=== PATIENT | female | born 1945 | race Caucasian/White ===

== ENCOUNTER 2018-03-07 22:44 | Observation (INO) ==
--- NOTE | 2018-03-07 23:12 | Emergency Department Note ---
Disposition Clinical Impression: Chronic anemia, Hyponatremia Chest pain Qualifiers: Chest pain type: unspecified Qualified Code(s): R07.9 - Chest pain, unspecified CKD (chronic kidney disease) Qualifiers: Chronic kidney disease stage: unspecified stage Qualified Code(s): N18.9 - Chronic kidney disease, unspecified Disposition: Admitted As Inpatient Condition: Fair Time of Disposition: 07:09 General Adult HPI - General Chief complaint: ED Chest Pain Stated complaint: chest pain Time Seen by Provider: 03/07/18 22:52 Source: EMS Mode of arrival: ambulatory Limitations: no limitations Nursing Notes Reviewed: Yes Vital Signs Reviewed: Yes - History of Present Illness HPI Narrative: Patient is a 72-year-old female with a past medical history of CAD with 1 stent placed 2 years ago, HLD, HTN, renal disease and cholecystectomy presenting to the emergency department for evaluation of chest pain that started approximately 6 hours ago. The patient states that the chest pain was gradual in onset and describes as a pressure-like pain that is substernal. 5/10. With radiation into her neck that she describes as like an aching pain. Denies any nausea, dyspnea, exertional dyspnea or pain. Received full dose of aspirin in the squad. States that this pain is not as intense as when she had a stent placed a few years ago. Patient states she is on a water pill which she takes daily. States that over the past 5 days she has noticed lower extremity swelling bilaterally as been seen by her family doctor and had an x-ray done to evaluate for fluid on her lungs which was negative. The patient states she is also on antibiotics for a wound of her right lower extremity which was caused initially by a injury from a dog running into her. States the wound is old and has been healing however this week she noticed some redness and warmth around the room and wound along with swelling of the leg. Pain Scale: 4 - Related Data Home Medications Medication Instructions Recorded Confirmed Clopidogrel [Plavix] 75 mg PO DAILY 03/22/15 03/08/18 Cyclobenzaprine [Flexeril] 10 mg PO TID 03/22/15 03/08/18 Lansoprazole [Prevacid] 30 mg PO DAILY 03/22/15 03/08/18 Zolpidem [Ambien] 10 mg PO HS PRN 03/22/15 03/08/18 Atorvastatin [Lipitor] 40 mg PO HS 03/23/15 03/08/18 Hydrocodone/Acetaminophen [[place] 1 tab PO Q6H PRN 03/23/15 03/08/18 10-325 Tablet] Lisinopril [Zestril] 10 mg PO DAILY 03/23/15 03/08/18 Metoprolol [Lopressor] 25 mg PO DAILY 03/23/15 03/08/18 Nitroglycerin 0.4 mg SL PRN PRN 03/23/15 03/08/18 Isosorbide MONOnitrate (24 HR) 30 mg PO DAILY 06/14/15 03/08/18 [Imdur] Aspirin [Lo-Dose Aspirin EC] 81 mg PO DAILY 09/30/16 03/08/18 Calcium Carbonate/Vitamin D3 2 each PO DAILY 09/30/16 03/08/18 [Calcium 600 + Vit D Tablet] Diclofenac Sodium [Voltaren] 1 applic TP QID 09/30/16 03/08/18 Fish Oil/Borage/Flax/Om3,6,9#1 2 tab PO DAILY 09/30/16 08/21/17 [[place] 3-6-9 1,200 mg Softgel] Multivit-Min/Iron/Folic/Lutein 2 each PO DAILY 09/30/16 03/08/18 [Centrum Silver Women Tablet] Vitamin E Acetate [Vitamin E] 400 unit PO DAILY 09/30/16 03/08/18 Ascorbic Acid [Vitamin C] 1,000 mg PO DAILY 05/29/17 03/08/18 Polyethylene Glycol 3350 [MiraLAX] 17 gm PO DAILY 08/21/17 08/21/17 Allergies Allergy/AdvReac Type Severity Reaction Status Date / Time Oxycodone Allergy Vomiting Verified 03/07/18 22:59 Penicillins [PCN] Allergy Rash Verified 03/07/18 22:59 All systems ED: reviewed and negative except as stated. Review of Systems: As Per HPI Constitutional: Denies: fever, chills Cardiovascular: Reports: chest pain, orthopnea, edema. Denies: palpitations, dyspnea on exertion, syncope Respiratory: Denies: cough, dyspnea, wheezes, hemoptysis Gastrointestinal: Denies: abdominal pain Genitourinary: Denies: urgency, dysuria, frequency Musculoskeletal: Denies: back pain, neck pain Integumentary: Reports: rash (right lower extremity wound with surrounding erythema. ) Neurological: Denies: headache, weakness, numbness, paresthesias, confusion, abnormal gait Past Medical History - Past Medical History Attestation: Yes The following information was validated with the patient. Medical history: Reports: coronary artery disease, GERD, hyperlipidemia, hypertension, osteoporosis, renal disease Surgical history: Reports: cholecystectomy, orthopedic, other Psychiatric history: Reports: no psych history - Social History Smoking Status: Never smoker Smokeless Tobacco Status: Yes Alcohol use: Reports: none Drug use: Reports: none Physical Exam CONSTITUTIONAL: A&O X 3, in no apparent distress. Vitals within normal limits, blood pressure on the lower region. HEAD: Normocephalic; atraumatic EYES: PERRL, no scleral icterus NOSE: The nose is normal in appearance without rhinorrhea NECK: No JVD or distended neck veins RESP: Normal chest excursion with respiration; breath sounds clear and equal bilaterally; no wheezes, rhonchi, or rales CARD: Regular rhythm, without murmurs, rub or gallop ABD: Non-distended; non-tender, soft, without rigidity, rebound or guarding,no pulsatile mass CHEST: No pain with palpation SKIN: Normal for age and race; warm and dry without diaphoresis ; area of 3x3cm wound that appears old over the right anterior mulligan. Very light surrounding erythema of the right lower leg. No area of induration or fluctuance. EXTREMITIES: Pulses are 2 plus and equal times 4 extremities, no calf muscle pain. Patient has bilateral 2+ pitting edema. - General General appearance: alert, in no apparent distress Course Course Narrative: Plan at this time is for the patient to undergo evaluation for her chest pain. She received her full dose of aspirin and squad. Initial EKG shows no signs of ischemia at this time. She will also undergo evaluation for DVT rule out of her right lower extremity given that she has tenderness, pitting edema as well as erythema which could be related to the wound she has on her leg. Patient states that her chest pain has improved at this time. Still has mild pain radiating in her neck. - Reevaluation(s) Reevaluation #1: Patient's right lower extremity DVT scan was negative for PE. Patient had chronic changes on labs with her elevation of creatinine as well as her anemia. Her troponin was negative and her BNP was in the 100s. Her EKG showed no ischemic changes. I discussed the patient's case with the hospitalist on-call and he agreed to accept the patient for ACS rule out and hyponatremia. Time: 07:08 Vital Signs Temperature 98.5 F 03/07/18 22:52 Pulse Rate 78 03/07/18 22:52 Respiratory Rate 16 03/07/18 22:52 Blood Pressure 99/59 03/07/18 22:52 O2 Sat by Pulse Oximetry 95 03/07/18 22:52 Temperature 97.7 F 03/08/18 04:02 Pulse Rate 79 03/08/18 04:02 Respiratory Rate 16 03/08/18 04:02 Blood Pressure 124/67 03/08/18 04:02 O2 Sat by Pulse Oximetry 97 03/08/18 04:02 Oxygen Delivery Oxygen Delivery Room Air Medical Decision Making - Medical Records Medical records reviewed: Yes I reviewed the patient's medical records. - Lab Data Lab results reviewed: Yes I reviewed the patient's lab results. Result diagrams: 03/07/18 22:52 03/07/18 22:52 Lab Results 03/07/18 03/07/18 03/07/18 Range/Units 22:52 22:52 23:07 WBC 7.8 (4.3-11.1) K/mcL RBC 2.95 L (3.82-4.97) M/mcL Hgb 9.2 L (11.5-15.4) g/dL Hct 27.5 L (35.3-44.9) % MCV 93.2 (83.0-100.0) fL MCH 31.2 (28.0-33.3) pg MCHC 33.5 (31.6-35.5) g/dL RDW 13.4 (11.5-14.5) % Plt Count 261 (140-400) K/mcL MPV 8.6 L (9.4-12.4) fL Immature Gran % 0.8 (0-4) % Seg Neutrophils % 47.9 % Lymphocytes % 36.2 % Monocytes % 12.3 % Eosinophils % 2.3 % Basophils % 0.5 % Neutrophils # 3.7 (1.6-8.9) K/mcL Lymphocytes # 2.8 (0.6-4.6) K/mcL Monocytes # 1.0 (0.0-1.3) K/mcL Eosinophils # 0.2 (0.0-0.6) K/mcL Basophils # 0.0 (0.0-0.2) K/mcL Sodium 123 L (136-145) mEq/L Potassium 4.9 (3.5-5.1) mEq/L Chloride 87 L (98-107) mEq/L Carbon Dioxide 31 H (23-29) mEq/L BUN 19 (8-23) mg/dL Creatinine 1.21 H (0.60-1.20) mg/dL Est GFR ( Amer) 53 L (> 60) Est GFR (Non-Af Amer) 43 L (> 60) BUN/Creatinine Ratio 16 (6-26) Glucose 102 (70-105) mg/dL Calculated Osmolality 258 L (280-300) Calcium 8.5 L (8.6-10.3) mg/dL Troponin I < 0.03 (< 0.04) ng/mL B-Natriuretic Peptide 121 H (Less than 100) pg/mL - Radiology Data Radiology results reviewed: Yes I reviewed the patient's radiology results. - EKG Data EKG #1 EKG attestation: Yes I reviewed and interpreted this EKG. EKG results narrative: EKG done at 22:54 shows sinus rhythm at a rate of 75 bpm. Normal axis. Intervals within normal limits. No signs of ST elevation, ST depression or Q waves present. No signs of ischemia this is unchanged from her EKG done on 10/20. Attestation Statement - Attestation Attestation: I, Alexandr Liang, examined this patient and my medical decision-making was reviewed with the [employer]/PA/Advanced Practice Nurse/Resident Physician. I agree with the documented findings, disposition and treatment plan as described except to the extent set forth below. 72-year-old female presents emergency Department with concerns of bilateral lower extremity swelling and chest pain. Patient states the chest pain occurs with exertion, is a pressure in the center of her chest. This is been worsening over the past several days. Patient denied recent trauma. No changes in her medications. Patient has a history congestive heart failure and takes 20 mg of Lasix twice a day.
[2018-03-07 23:24] LABS: Basophils % 0.5 %; Eosinophils # 0.2 K/mcL (0.0-0.6); Eosinophils % 2.3 %; Hematocrit 27.5 % (35.3-44.9); Hemoglobin 9.2 g/dL (11.5-15.4); Immature Granulocytes % 0.8 % (0-4); Lymphocytes # 2.8 K/mcL (0.6-4.6); Lymphocytes % 36.2 %; Mean Corpuscular HGB Conc 33.5 g/dL (31.6-35.5); Mean Corpuscular Hemoglobin 31.2 pg (28.0-33.3); Mean Corpuscular Volume 93.2 fL (83.0-100.0); Mean Platelet Volume 8.6 fL (9.4-12.4); Monocytes % 12.3 %; Neutrophils # 3.7 K/mcL (1.6-8.9); Platelet Count 261 K/mcL (140-400); Red Blood Count 2.95 M/mcL (3.82-4.97); Red Cell Distribution Width 13.4 % (11.5-14.5); Segmented Neutrophils % 47.9 %
[2018-03-07 23:43] LABS: Calcium 8.5 mg/dL (8.6-10.3); Carbon Dioxide 31 mEq/L (23-29); Chloride 87 mEq/L (98-107); Glucose 102 mg/dL (70-105); Potassium 4.9 mEq/L (3.5-5.1); Sodium 123 mEq/L (136-145); Troponin I < 0.03 ng/mL (< 0.04); eGFR For Non-African Americans 43 (> 60)
[2018-03-08 01:01] LABS: BUN/Creatinine Ratio 16 (6-26); Blood Urea Nitrogen 19 mg/dL (8-23); Osmolality,Calculated 258 (280-300)
[2018-03-08 07:21] LABS: Troponin I < 0.03 ng/mL (< 0.04)
[2018-03-08] MEDS ORDERED: *HR* HYDROcodone/Acet 10/325 mg TABLET PO PRN (07:44)
[2018-03-08] MEDS ORDERED: 0.9 % Sodium Chloride 500 ML IVC ONE (07:44)
[2018-03-08] MEDS ORDERED: Naloxone 0.4 MG/ML INJ IVP PRN (07:46)
[2018-03-08] MEDS: Ascorbic Acid 500 MG TABLET PO SCH (08:26)
[2018-03-08] MEDS: Multivit/Ca/Min/Fe/FA 1 TAB TABLET PO SCH (08:26)
[2018-03-08] MEDS: Isosorbide MONOnitrate (24 HR) 30 MG TAB.ER.24H PO SCH (08:26)
[2018-03-08] MEDS: Aspirin Enteric Coated 81 MG Tablet PO SCH (08:26)
[2018-03-08 08:27] LABS: BUN/Creatinine Ratio 15 (6-26); Blood Urea Nitrogen 18 mg/dL (8-23); Calcium 8.8 mg/dL (8.6-10.3); Carbon Dioxide 30 mEq/L (23-29); Chloride 90 mEq/L (98-107); Glucose 111 mg/dL (70-105); Osmolality,Calculated 265 (280-300); Potassium 4.3 mEq/L (3.5-5.1); Sodium 126 mEq/L (136-145); eGFR For Non-African Americans 42 (> 60)
[2018-03-08] MEDS: DICLOFENAC SODIUM TP SCH ×4 (08:38→20:57)
--- NOTE | 2018-03-08 08:44 | Internal Med History&Physical ---
Date of Encounter: 03/08/18 Time of Encounter: 08:42 Internal Medicine - H&P: HPI Chief complaint: Chest pain Admitted From: Home Plans for Post Hospital Care: Home History of present illness: Ms. Locke is a 72 year old female with PMH of CAD with stent, CKD III, HLD, HTN, who presented to the ER with complains of chest pain that started approximately 6 hours prior to presentation. The patient states that the chest pain was gradual in onset and describes as a pressure-like pain that is substernal. 5/10. With radiation into her neck that she describes as like an aching pain. Denies any nausea, dyspnea, exertional dyspnea or pain. Received full dose of aspirin in the squad. States that this pain is not as intense as when she had a stent placed a few years ago. She also described "pain between my shoulders", said to be dull, non-radiating and completely unrelated to the chest pain. She denies cough, SOB, diaphoresis, n/v/diarrhea, no fever or chills. She denies any dysuria, or change in urinary habits. she has CKD III and has not noticed any changes in her urine output. She is on a diuretic which she takes religiously She reports having been scratched by her daughter's dog on her RLE and started on antibiotic by her PCP 2 days ago. She denies any purulent discharge from same Initial EKG and trop in the ER was non-ischemic. Other work up showed hyponatremia, BNP was 121, repeat trop was negative as well. Beside USS of RLE showed no DVT She is full code Past Med Surg Social Fam HX - Past Medical History Medical history: coronary artery disease, GERD, hyperlipidemia, hypertension, osteoporosis, renal disease Additional medical history: sepsis september 2014, heart stent 2013 @ [facility] Psychiatric history: no psych history - Past Surgical History Surgical History: cholecystectomy, orthopedic, other Additional surgical history: hip surgeries - Social History Smoking Status: Never smoker Smokeless Tobacco Status: Yes Alcohol use: none Drug use: none - Family History Mother Living Status: Still Living Hx Family Neurologic Disorders: Yes (alzheimers) Internal Medicine - H&P: Meds Clopidogrel [Plavix] 75 mg PO DAILY 03/22/15 [History] Cyclobenzaprine [Flexeril] 10 mg PO TID 03/22/15 [History] Lansoprazole [Prevacid] 30 mg PO DAILY 03/22/15 [History] Zolpidem [Ambien] 10 mg PO HS PRN 03/22/15 [History] Atorvastatin [Lipitor] 40 mg PO HS 03/23/15 [History] Hydrocodone/Acetaminophen [[place] 10-325 Tablet] 1 tab PO Q6H PRN 03/23/15 [ History] Lisinopril [Zestril] 10 mg PO DAILY 03/23/15 [History] Metoprolol [Lopressor] 25 mg PO DAILY 03/23/15 [History] Nitroglycerin 0.4 mg SL PRN PRN 03/23/15 [History] Isosorbide MONOnitrate (24 HR) [Imdur] 30 mg PO DAILY 06/14/15 [History] Aspirin [Lo-Dose Aspirin EC] 81 mg PO DAILY 09/30/16 [History] Calcium Carbonate/Vitamin D3 [Calcium 600 + Vit D Tablet] 2 each PO DAILY [History] Diclofenac Sodium [Voltaren] 1 applic TP QID 09/30/16 [History] Fish Oil/Borage/Flax/Om3,6,9#1 [[place] 3-6-9 1,200 mg Softgel] 2 tab PO DAILY 09/13 [History] Multivit-Min/Iron/Folic/Lutein [Centrum Silver Women Tablet] 2 each PO DAILY 09/13 [History] Vitamin E Acetate [Vitamin E] 400 unit PO DAILY 09/30/16 [History] Ascorbic Acid [Vitamin C] 1,000 mg PO DAILY 05/29/17 [History] Polyethylene Glycol 3350 [MiraLAX] 17 gm PO DAILY 08/21/17 [History] 3 Allergy/AdvReac Type Severity Reaction Status Date / Time Oxycodone Allergy Vomiting Verified 03/07/18 22:59 Penicillins [PCN] Allergy Rash Verified 03/07/18 22:59 All Systems PM: A 10-system review of systems was performed and is negative for pertinent findings except as documented above in the HPI. - Constitutional Constitutional: as per HPI - EENT Eyes: as per HPI Ears: as per HPI Nose, mouth and throat: as per HPI - Cardiovascular Cardiovascular ROS IM: as per HPI - Respiratory Respiratory: as per HPI - Gastrointestinal Gastrointestinal: as per HPI - Genitourinary Genitourinary: as per HPI - Musculoskeletal Musculoskeletal ROS IM: as per HPI - Integumentary Integumentary IM: as per HPI - Neurological Neurological ROS: as per HPI - Hematologic/Lymphatic Hematologic/Lymphatic: as per HPI - Constitutional Vitals: Temp Pulse Resp BP Pulse Ox 98.8 F 77 18 125/53 99 03/08/18 07:45 03/08/18 07:45 03/08/18 07:45 03/08/18 07:45 03/08/18 07:45 General appearance: Present: A&O X 3, no acute distress, obese Exam: see detailed exam below - Head Head exam: Present: atraumatic, normocephalic - Eye Eye exam: Present: PERRL, conjuntiva pink, sclera anicteric Pupils: Present: PERRL - Neck Neck exam general surgery: Present: supple, trachea midline. Absent: lymphadenopathy - Respiratory Respiratory exam: Present: CTAB. Absent: accessory muscle use, rales, rhonchi, wheezes - Cardiovascular Cardiovascular exam: Present: RRR, +S1, +S2. Absent: diastolic murmur, gallop, rubs, systolic murmur - GI/Abdominal GI/Abdominal exam: Present: normal bowel sounds, soft, no peritoneal signs. Absent: distended, tenderness - Extremities Exam Extremities exam: Present: pedal edema, warm, radial pulses palpable and symmetrical. Absent: calf tenderness, cyanotic Additional comments: RLE with lateral healed wounds but surrounding warmth, redness and tenderness, bilateral piting pedal edema Pulses present - Neurological Exam Neurological exam: Present: alert, CN II-XII intact, oriented X3, no focal deficits. Absent: pronater drift, facial droop, speech deficit - Skin Skin exam: Present: dry, intact Internal Med - H&P Results - Labs CBC & Chem 7: 03/07/18 22:52 03/08/18 05:50 Labs: BMP 03/08/18 05:50 Sodium 126 L Potassium 4.3 Chloride 90 L Carbon Dioxide 30 H BUN 18 Creatinine 1.24 H Glucose 111 H Calcium 8.8 Cardiac Enzymes 03/08/18 Range/Units 05:50 Troponin I < 0.03 (< 0.04) ng/mL - Assessment and plan (1) Cellulitis Current Visit: Yes Status: Acute Assessment and plan: secondary to dog bite Start on clindamycin 300mg po q6h patient was on keflex at home, has allergies to penicillin No sepsis or abscess collection DVT ruled out Qualifiers: Site of cellulitis: extremity Site of cellulitis of extremity: lower extremity Laterality: right Qualified Code(s): L03.115 - Cellulitis of right lower limb (2) CKD (chronic kidney disease) Current Visit: Yes Status: Chronic Assessment and plan: stable and at baseline Qualifiers: Chronic kidney disease stage: stage 3 (moderate) Qualified Code(s): N18.3 - Chronic kidney disease, stage 3 (moderate) (3) Chest pain Current Visit: Yes Status: Acute Assessment and plan: r/o ACS due to prior hx of same EKG with no ST segment changes Trop neg X2 keep on tele Stress test am Continue home meds No active chest pain at time of review Qualifiers: Chest pain type: unspecified Qualified Code(s): R07.9 - Chest pain, unspecified (4) Chronic anemia Current Visit: Yes Status: Chronic Assessment and plan: Hb stable at baseline, continue to monitor (5) Hyponatremia Current Visit: Yes Status: Acute Assessment and plan: Hx of CKD Patient states use of diuretics at home, however, none on med list at this time Presenting Na is 123, improved to 126 Patient is asymptomatic Continue to monitor (6) CAD (coronary artery disease) Current Visit: Yes Status: Chronic Assessment and plan: resume home meds Qualifiers: Coronary Disease-Associated Artery/Lesion type: [place] artery [place] vs. transplanted heart: [place] heart Associated angina: without angina Qualified Code(s): I25.10 - Atherosclerotic heart disease of [place] coronary artery without angina pectoris - Time Spent With Patient Total time spent is greater than 50% in coordination of care (as documented) at patient's floor/unit and/or counseling patient:
[2018-03-09] MEDS ORDERED: Regadenoson 0.4 MG/5 ML SYRINGE IVP ONE (05:43)
[2018-03-09 06:39] LABS: Basophils % 0.5 %; Eosinophils # 0.2 K/mcL (0.0-0.6); Eosinophils % 2.6 %; Hematocrit 25.9 % (35.3-44.9); Hemoglobin 8.5 g/dL (11.5-15.4); Immature Granulocytes % 0.5 % (0-4); Lymphocytes # 2.4 K/mcL (0.6-4.6); Mean Corpuscular HGB Conc 32.8 g/dL (31.6-35.5); Mean Corpuscular Hemoglobin 30.5 pg (28.0-33.3); Mean Corpuscular Volume 92.8 fL (83.0-100.0); Mean Platelet Volume 8.9 fL (9.4-12.4); Monocytes # 0.7 K/mcL (0.0-1.3); Monocytes % 9.1 %; Neutrophils # 4.4 K/mcL (1.6-8.9); Platelet Count 271 K/mcL (140-400); Red Blood Count 2.79 M/mcL (3.82-4.97); Red Cell Distribution Width 13.5 % (11.5-14.5); Segmented Neutrophils % 56.3 %
[2018-03-09 07:05] LABS: Calcium 8.8 mg/dL (8.6-10.3); Potassium 3.8 mEq/L (3.5-5.1)
[2018-03-09 07:38] VITALS: BP 125/71
[2018-03-09] MEDS: Aspirin Enteric Coated 81 MG Tablet PO SCH (12:37)
[2018-03-09] MEDS: Multivit/Ca/Min/Fe/FA 1 TAB TABLET PO SCH (12:37)
[2018-03-09] MEDS: Isosorbide MONOnitrate (24 HR) 30 MG TAB.ER.24H PO SCH (12:37)
[2018-03-09] MEDS: Ascorbic Acid 500 MG TABLET PO SCH (12:38)
[2018-03-09] MEDS: DICLOFENAC SODIUM TP SCH ×2 (12:38→12:48)
--- NOTE | 2018-03-09 15:41 | Discharge Summary ---
- NOTES TO OUTPATIENT PROVIDER Notes to Outpatient Provider: Placed in observation for chest pain. Stress test negative. Sodium low but improved. Anemic but chronic. Orders not resulted at time of discharge: Pending orders 03/09/18 07:00 NM ashley perf SPECT multi [NM] Routine Date of Encounter: 03/09/18 Time of Encounter: 15:39 - Discharge Diagnosis (1) Hyponatremia Priority: Primary Status: Chronic (2) CKD (chronic kidney disease) Priority: Secondary Status: Chronic Qualifiers: Chronic kidney disease stage: stage 3 (moderate) Qualified Code(s): N18.3 - Chronic kidney disease, stage 3 (moderate) (3) Chronic anemia Priority: Secondary Status: Chronic (4) Cellulitis Priority: Secondary Status: Acute Qualifiers: Site of cellulitis: extremity Site of cellulitis of extremity: lower extremity Laterality: right Qualified Code(s): L03.115 - Cellulitis of right lower limb (5) CAD (coronary artery disease) Priority: Secondary Status: Chronic Qualifiers: Coronary Disease-Associated Artery/Lesion type: [place] artery [place] vs. transplanted heart: [place] heart Associated angina: without angina Qualified Code(s): I25.10 - Atherosclerotic heart disease of [place] coronary artery without angina pectoris Hospital course: Ms. Locke is a 72 year old female presented to ED due to chest pain. She was placed in observation Ms Locke was placed in observation. She had no further episodes of pain. Sodium was low and responded to fluids. Stress test was negative. At this time she is afebrile and feels at baseline. She is ready for discharge. H/H needs monitored. Discharge discussed with: patient, family - Time Spent with Patient Total time spent providing and/or coordinating discharge services: - Discharge Medications Home Medications: Clopidogrel [Plavix] 75 mg PO DAILY 03/22/15 [History] Cyclobenzaprine [Flexeril] 10 mg PO TID 03/22/15 [History] Lansoprazole [Prevacid] 30 mg PO DAILY 03/22/15 [History] Zolpidem [Ambien] 10 mg PO HS PRN 03/22/15 [History] Atorvastatin [Lipitor] 40 mg PO HS 03/23/15 [History] Hydrocodone/Acetaminophen [[place] 10-325 Tablet] 1 tab PO Q6H PRN 03/23/15 [ History] Lisinopril [Zestril] 10 mg PO DAILY 03/23/15 [History] Metoprolol [Lopressor] 25 mg PO DAILY 03/23/15 [History] Nitroglycerin 0.4 mg SL PRN PRN 03/23/15 [History] Isosorbide MONOnitrate (24 HR) [Imdur] 30 mg PO DAILY 06/14/15 [History] Aspirin [Lo-Dose Aspirin EC] 81 mg PO DAILY 09/30/16 [History] Calcium Carbonate/Vitamin D3 [Calcium 600 + Vit D Tablet] 2 each PO DAILY [History] Diclofenac Sodium [Voltaren] 1 applic TP QID 09/30/16 [History] Multivit-Min/Iron/Folic/Lutein [Cent[place] Silver Women Tablet] 2 each PO DAILY 09/13 [History] Vitamin E Acetate [Vitamin E] 400 unit PO DAILY 09/30/16 [History] Ascorbic Acid [Vitamin C] 1,000 mg PO DAILY 05/29/17 [History] Clindamycin [Cleocin] 300 mg PO Q6HR capsule 03/09/18 [Rx] Isosorbide MONOnitrate (24 HR) [Imdur] 30 mg PO DAILY tab.er.24h 03/09/18 [Rx] Allergies/Adverse Reactions: 3 Allergy/AdvReac Type Severity Reaction Status Date / Time Oxycodone Allergy Vomiting Verified 03/07/18 22:59 Penicillins [PCN] Allergy Rash Verified 03/07/18 22:59 Date of admission: 03/08/18 01:47 Primary care physician: John Franks MD Discharging clinician: Alex aJramillo Anticipated date of discharge: 03/09/18 - Constitutional Vitals: Temp Pulse Resp BP Pulse Ox 98.1 F 80 16 125/71 97 03/09/18 07:36 03/09/18 07:36 03/09/18 07:36 03/09/18 07:36 03/09/18 07:36 General appearance: Present: A&O X 3, pleasant Exam: See below - Head Head exam: Present: normocephalic - Eye Eye exam: Present: EOMI, conjuntiva pink - ENT ENT exam: Present: mucous membranes moist - Respiratory Respiratory exam: Present: CTAB. Absent: rales, rhonchi, wheezes - Cardiovascular Cardiovascular exam: Present: RRR. Absent: tachycardia - GI/Abdominal GI/Abdominal exam: Present: soft. Absent: tenderness - Extremities Exam Extremities exam: Present: tenderness, warm - Neurological Exam Neurological exam: Present: alert, oriented X3, no focal deficits - Skin Skin exam: Present: abrasion (R leg), dry, warm - Patient Status Disposition: Home, Self-Care Condition: Good Functional capacity at discharge: independent ambulation Overall status at discharge: patient is progressing back to baseline - Discharge Instructions Instructions: Chest Pain (DC), Cellulitis (DC) Follow Up With: John Franks MD [Primary Care Provider] - (Please follow up within 5-7 days with primary care physician.) - Diet and Activity Activity: increase activity as tolerated Diet: advance to your usual diet
--- NOTE | 2018-03-12 17:32 | Electrocardiograph Report ---
[address] [place], [place] [address] Test Date: 2018-03-07 Pat Name: Becca Locke Department: [id number] Room: 3B48 Gender: F Pressure Dispatcher: : 1945 Requested By: Logan Rosen Order Number: [id number] Reading MD: Nina Hernandez Measurements Intervals [place] Rate: 75 P: 44 ND: 206 QRS: -6 QRSD: 93 T: 30 QT: 372 QTc: 416 Interpretive Statements Sinus rhythm Left ventricular hypertrophy Electronically Signed On 03-12-2018 17:30:15 EDT by Nina Hernandez
== END 2018-03-09 16:20 | disposition home or self-care (01) ==
LOC: EMEROOARM 22:44 → 3BNU 22:44 → SUATTDRO 03-08 01:47 → 3BNU 03-08 02:15
PROVIDERS: ADMIT Pediatrics; ATTEND Internal Medicine

== ENCOUNTER 2019-03-16 20:16 | Observation (INO) ==
[2019-03-16 21:08] LABS: Basophils % 0.1 %; Hematocrit 30.3 % (35.3-44.9); Hemoglobin 10.3 g/dL (11.5-15.4); Lymphocytes # 0.8 K/mcL (0.6-4.6); Lymphocytes % 6.4 %; Mean Corpuscular Hemoglobin 30.9 pg (28.0-33.3); Mean Platelet Volume 8.6 fL (9.4-12.4); Monocytes # 0.4 K/mcL (0.0-1.3); Monocytes % 2.8 %; Neutrophils # 11.6 K/mcL (1.6-8.9); Platelet Count 222 K/mcL (140-400); Red Blood Count 3.33 M/mcL (3.82-4.97); Red Cell Distribution Width 13.3 % (11.5-14.5); Segmented Neutrophils % 89.7 %; White Blood Count 12.9 K/mcL (4.3-11.1)
--- NOTE | 2019-03-16 21:23 | Emergency Department Note ---
Disposition Clinical Impression: Hyponatremia, Weakness Falls Qualifiers: Encounter type: initial encounter Qualified Code(s): W19.XXXA - Unspecified fall, initial encounter Disposition: Admitted As Inpatient Condition: Good Time of Disposition: 22:57 General Adult HPI - General Chief complaint: ED Fall Stated complaint: fell 1 wk ago/back & bilat hip pain Time Seen by Provider: 03/16/19 20:17 Source: patient, EMS Limitations: no limitations Nursing Notes Reviewed: Yes Vital Signs Reviewed: Yes - History of Present Illness HPI Narrative: Patient's of a 73-year-old female history of cardiac catheterization and stent placement in October and TAVR following that presenting the emergency department with low back and hip pain. Patient states that last Friday around midnight she got dizzy and fell and landed on her left hip. She describes a left hip pain as 8 out of 10 that has been progressively getting worse. Patient has been able to ambulate. Patient was able to get up but then fell again while trying to clean blood off the carpet. Patient states she did not lose consciousness. Patient has been feeling off that she describes as weakness for the past week. Patient currently denies chest pain, abdominal pain, shortness of breath, nausea, vomiting, headache, dizziness, leg or ankle swelling, palpitations. Pain Scale: 7 - Related Data Home Medications Medication Instructions Recorded Confirmed Lansoprazole [Prevacid] 30 mg PO DAILY 03/22/15 03/16/19 Zolpidem [Ambien] 10 mg PO HS PRN 03/22/15 03/16/19 Nitroglycerin 0.4 mg SL AD PRN 03/23/15 03/16/19 Aspirin [Lo-Dose Aspirin EC] 81 mg PO QPM 09/30/16 03/16/19 Calcium Carbonate/Vitamin D3 2 tab PO DAILY 09/30/16 03/16/19 [Calcium 600 + Vit D Tablet] Multivit-Min/Iron/Folic/Lutein 2 tab PO DAILY 09/30/16 03/16/19 [Centrum Silver Women Tablet] Vitamin E Acetate [Vitamin E] 400 unit PO DAILY 09/30/16 03/16/19 Fish Oil/Borage/Flax/Om3,6,9#1 1,200 mg PO BID 11/04/18 03/16/19 [[place] 3-6-9 1,200 mg Softgel] Polyethylene Glycol 3350 [MiraLAX] 17 gm PO 3XW 11/04/18 03/16/19 Sertraline [Zoloft] 50 mg PO DAILY 11/04/18 03/16/19 Atorvastatin [Lipitor] 40 mg PO HS 03/16/19 03/16/19 Clopidogrel [Plavix] 75 mg PO DAILY 03/16/19 03/16/19 Cyclobenzaprine [Flexeril] 10 mg PO 2-3XD 03/16/19 03/16/19 Ferrous Sulfate [Iron] 325 mg PO BID 03/16/19 03/16/19 HYDROcodone/Acet 10/325 mg [[place] 1 tab PO Q8HR PRN 03/16/19 03/16/19 10-325 mg] Isosorbide MONOnitrate (24 HR) 30 mg PO QAM 03/16/19 03/16/19 [Imdur] Lisinopril [Zestril] 10 mg PO QAM 03/16/19 03/16/19 Metoprolol [Lopressor] 25 mg PO QAM 03/16/19 03/16/19 predniSONE [PredniSONE] 20 mg PO TID 03/16/19 03/16/19 Allergies Allergy/AdvReac Type Severity Reaction Status Date / Time oxycodone [Oxycodone] Allergy Vomiting Verified 03/16/19 20:19 Penicillins [PCN] Allergy Rash Verified 03/16/19 20:19 All systems ED: reviewed and negative except as stated. Review of Systems: As Per HPI Constitutional: Reports: weakness. Denies: fever, chills Eyes: Denies: eye pain, eye discharge ENT ED: Denies: ear pain, throat pain Cardiovascular: Denies: chest pain, palpitations Respiratory: Denies: cough, dyspnea Gastrointestinal: Denies: abdominal pain, nausea Genitourinary: Denies: urgency, dysuria Musculoskeletal: Denies: back pain, neck pain Integumentary: Denies: rash, abrasion Neurological: Reports: weakness. Denies: headache, numbness Psychiatric: Denies: anxiety, depression Endocrine: Denies: fatigue, heat or cold intolerance Hematological/Lymphatic: Denies: easy bleeding, easy bruising Allergic/Immunologic: Denies: facial swelling, urticaria Past Medical History - Past Medical History Attestation: Yes The following information was validated with the patient. Medical history: Reports: coronary artery disease, GERD, hyperlipidemia, hypertension, osteoporosis, renal disease, valvular heart disease, other Surgical history: Reports: angioplasty/stent, cholecystectomy, orthopedic, other Psychiatric history: Reports: no psych history - Social History Smoking Status: Former smoker Smokeless Tobacco Status: No Alcohol use: Reports: none Drug use: Reports: none Physical Exam - General Limitations: no limitations General appearance: alert - Head Head exam: atraumatic, normocephalic - Eye Eye exam: Present: normal appearance, PERRL, EOMI - ENT ENT exam: normal exam, normal oropharynx, mucous membranes moist - Neck Neck exam: Present: normal inspection, full ROM - Chest Chest inspection: Present: normal inspection, symmetric chest wall rise. Absent: tenderness - Respiratory Respiratory exam: Present: normal lung sounds bilaterally. Absent: respiratory distress - Cardiovascular Cardiovascular exam: Present: regular rate, normal rhythm, normal heart sounds - Abdominal Exam Abdominal exam: Present: soft, Non-Tender. Absent: tenderness, distention, guarding - Extremities Exam Extremities exam: Present: normal inspection, full ROM. Absent: pedal edema - Expanded Lower Extremity Exam Hip/Pelvis exam: Present: normal inspection, full ROM, tenderness. Absent: swelling Neurovascular/Tendon exam: Present: normal capillary refill. Absent: pulse deficit, motor deficit, sensory deficit - Back Exam Back exam: Present: tenderness (Lumbar) - Neurological Exam Neurological exam: Present: alert, oriented X3 - Psychiatric Psychiatric exam: Present: normal affect, normal mood Course Vital Signs O2 Sat by Pulse Oximetry 98 03/16/19 20:32 Temperature 98.7 F 03/16/19 20:34 Pulse Rate 73 03/16/19 20:34 Respiratory Rate 20 03/16/19 20:34 Blood Pressure 153/70 03/16/19 20:34 O2 Sat by Pulse Oximetry 98 03/16/19 20:34 Oxygen Delivery Oxygen Delivery Room Air Medical Decision Making - [facility] Narrative Medical decision making narrative: Patient with a significant cardiac history presenting emergency department for near syncopal and increasing in falls. Patient fell last week and has had increasing pain in her hip and low back. CT evaluation of these will be performed. Patient is also had increased weakness and episodes of dizziness we will evaluate this with labs. CT scans revealed minor contusion but no other acute causes. Patient found to be hyponatremic with sodium of 119. Patient appears to be euvolemic. Possible causes include SIADH. Patient has been on steroids for a long issue. She has not hypo-or hypertensive. Patient has had increased diarrhea for the past 2 days. I have ordered additional labs to evaluate causes for her low sodium. Consulted nephrology for recommendations. Recommended fluid restriction with sodium rechecks every 4 hours and not to exceed a sodium of 127 within 12 hours. Nephrology will consult on the patient in the emergency department. Spoke with hospitalist who agreed to admit the patient with nephrology as consult. - Medical Records Medical records reviewed: Yes I reviewed the patient's medical records. - Lab Data Lab results reviewed: Yes I reviewed the patient's lab results. Result diagrams: 03/16/19 20:52 03/16/19 20:52 Lab Results 03/16/19 03/16/19 03/16/19 Range/Units 20:52 20:52 21:34 WBC 12.9 H (4.3-11.1) K/mcL RBC 3.33 L (3.82-4.97) M/mcL Hgb 10.3 L (11.5-15.4) g/dL Hct 30.3 L (35.3-44.9) % MCV 91.0 (83.0-100.0) fL MCH 30.9 (28.0-33.3) pg MCHC 34.0 (31.6-35.5) g/dL RDW 13.3 (11.5-14.5) % Plt Count 222 (140-400) K/mcL MPV 8.6 L (9.4-12.4) fL Immature Gran % 1.0 (0-4) % Seg Neutrophils % 89.7 % Lymphocytes % 6.4 % Monocytes % 2.8 % Eosinophils % 0.0 % Basophils % 0.1 % Neutrophils # 11.6 H (1.6-8.9) K/mcL Lymphocytes # 0.8 (0.6-4.6) K/mcL Monocytes # 0.4 (0.0-1.3) K/mcL Eosinophils # 0.0 (0.0-0.6) K/mcL Basophils # 0.0 (0.0-0.2) K/mcL Sodium 119 L* (136-145) mEq/L Potassium 5.0 (3.5-5.1) mEq/L Chloride 87 L (98-107) mEq/L Carbon Dioxide 28 (23-29) mEq/L BUN 24 H (8-23) mg/dL Creatinine 1.19 (0.60-1.20) mg/dL Est GFR ( Amer) 54 L (> 60) Est GFR (Non-Af Amer) 44 L (> 60) BUN/Creatinine Ratio 20 (6-26) Glucose 137 H (70-105) mg/dL Calculated Osmolality 254 L (280-300) Calcium 8.7 (8.6-10.3) mg/dL Troponin I < 0.03 (< 0.04) ng/mL Urine Color Yellow (Yellow) Urine Clarity Clear (Clear) Urine pH 6.5 (5.0-8.0) pH Units Ur Specific [place] 1.012 (1.010-1.025) Urine Protein Negative (Neg-Trace) mg/dL Urine Glucose (UA) Normal (Normal) mg/dL Urine Ketones Negative (Negative) mg/dL Urine Blood Negative (Negative) Urine Nitrite Negative (Negative) Urine Bilirubin Negative (Negative) Urine Urobilinogen Normal (Normal) mg/dL Ur Leukocyte Esterase Negative (Negative) Ur Culture Indicated? NO (NO) Urine Creatinine mg/dL Urine Sodium mEq/L 03/16/19 Range/Units 21:34 WBC (4.3-11.1) K/mcL RBC (3.82-4.97) M/mcL Hgb (11.5-15.4) g/dL Hct (35.3-44.9) % MCV (83.0-100.0) fL MCH (28.0-33.3) pg MCHC (31.6-35.5) g/dL RDW (11.5-14.5) % Plt Count (140-400) K/mcL MPV (9.4-12.4) fL Immature Gran % (0-4) % Seg Neutrophils % % Lymphocytes % % Monocytes % % Eosinophils % % Basophils % % Neutrophils # (1.6-8.9) K/mcL Lymphocytes # (0.6-4.6) K/mcL Monocytes # (0.0-1.3) K/mcL Eosinophils # (0.0-0.6) K/mcL Basophils # (0.0-0.2) K/mcL Sodium (136-145) mEq/L Potassium (3.5-5.1) mEq/L Chloride (98-107) mEq/L Carbon Dioxide (23-29) mEq/L BUN (8-23) mg/dL Creatinine (0.60-1.20) mg/dL Est GFR ( Amer) (> 60) Est GFR (Non-Af Amer) (> 60) BUN/Creatinine Ratio (6-26) Glucose (70-105) mg/dL Calculated Osmolality (280-300) Calcium (8.6-10.3) mg/dL Troponin I (< 0.04) ng/mL Urine Color (Yellow) Urine Clarity (Clear) Urine pH (5.0-8.0) pH Units Ur Specific [place] (1.010-1.025) Urine Protein (Neg-Trace) mg/dL Urine Glucose (UA) (Normal) mg/dL Urine Ketones (Negative) mg/dL Urine Blood (Negative) Urine Nitrite (Negative) Urine Bilirubin (Negative) Urine Urobilinogen (Normal) mg/dL Ur Leukocyte Esterase (Negative) Ur Culture Indicated? (NO) Urine Creatinine 25 mg/dL Urine Sodium 31.5 mEq/L - Radiology Data Radiology results reviewed: Yes I reviewed the patient's radiology results. Lumbar Spine CT 03/16/19 22:08 IMPRESSION: 1. Severe osteopenia with superimposed diffuse degenerative changes in the lumbar spine and pelvis. 2. Bilateral total hip prosthesis. 3. No acute fracture. 4. Skin and subcutaneous tissues on the left side at the level of the joint demonstrating some thickening and underlying induration and fluid which may reflect contusion and hematoma in the setting of trauma or could be cellulitis. Please correlate with physical exam. D/ / Wolf Mitchell MD / Wolf Mitchell MD Interpreting Provider: Wolf Mitchell MD Pelvis CT 03/16/19 22:08 IMPRESSION: 1. Severe osteopenia with superimposed diffuse degenerative changes in the lumbar spine and pelvis. 2. Bilateral total hip prosthesis. 3. No acute fracture. 4. Skin and subcutaneous tissues on the left side at the level of the joint demonstrating some thickening and underlying induration and fluid which may reflect contusion and hematoma in the setting of trauma or could be cellulitis. Please correlate with physical exam. D/ / Wolf Mitchell MD / Wolf Mitchell MD Interpreting Provider: Wolf Mitchell MD Chest X-Ray 03/16/19 22:19 IMPRESSION: No acute cardiopulmonary findings. Shallow inspiratory effort with unchanged chronic features of fibrotic lung disease. D/ / Osvaldo Chang / Osvaldo Chang Interpreting Provider: Osvaldo Chang - EKG Data EKG #1 EKG attestation: Yes I reviewed and interpreted this EKG. EKG results narrative: EKG performed at 2030 review by myself and my attending shows a sinus arrhythmia at a rate of 75, LA 200, QRS 100, QTC 428, normal axis. There appears to be a few PACs. No ST changes no T wave changes no signs of ischemia. Appears to be left ventricular hypertrophy. Otherwise normal EKG.
[2019-03-16 21:35] LABS: BUN/Creatinine Ratio 20 (6-26); Blood Urea Nitrogen 24 mg/dL (8-23); Calcium 8.7 mg/dL (8.6-10.3); Carbon Dioxide 28 mEq/L (23-29); Chloride 87 mEq/L (98-107); Glucose 137 mg/dL (70-105); Osmolality,Calculated 254 (280-300); Sodium 119 mEq/L (136-145); Troponin I < 0.03 ng/mL (< 0.04); eGFR For African Americans 54 (> 60); eGFR For Non-African Americans 44 (> 60)
[2019-03-16 21:47] LABS: Bilirubin,Urine Negative (Negative); Blood,Urine Negative (Negative); Clarity,Urine Clear (Clear); Color,Urine Yellow (Yellow); Glucose,Urine (UA) Normal (Normal); Ketones,Urine Negative (Negative); Leukocyte Esterase,Urine Negative (Negative); Nitrite,Urine Negative (Negative); PH,Urine 6.5 pH Units (5.0-8.0); Protein,Urine Negative (Neg-Trace); Specific Gravity,Urine 1.012 (1.010-1.025); Urobilinogen,Urine Normal (Normal)
[2019-03-16 22:45] LABS: Sodium, Urine 31.5 mEq/L
--- NOTE | 2019-03-16 22:48 | Emergency Department Note ---
Disposition Clinical Impression: Hyponatremia, Weakness Falls Qualifiers: Encounter type: initial encounter Qualified Code(s): W19.XXXA - Unspecified fall, initial encounter Disposition: Admitted As Inpatient Condition: Good Referrals: Oswaldo Al MD [Primary Care Provider] - Forms: ED Satisfaction Letter Time of Disposition: 22:48 General Adult HPI - General Chief complaint: ED Fall Stated complaint: fell 1 wk ago/back & bilat hip pain Time Seen by Provider: 03/16/19 20:17 Source: patient, EMS Limitations: no limitations - History of Present Illness Pain Scale: 7 - Related Data Home Medications Medication Instructions Recorded Confirmed Lansoprazole [Prevacid] 30 mg PO DAILY 03/22/15 03/16/19 Zolpidem [Ambien] 10 mg PO HS PRN 03/22/15 03/16/19 Nitroglycerin 0.4 mg SL PRN PRN 03/23/15 03/16/19 Aspirin [Lo-Dose Aspirin EC] 81 mg PO DAILY 09/30/16 03/16/19 Calcium Carbonate/Vitamin D3 2 each PO DAILY 09/30/16 03/16/19 [Calcium 600 + Vit D Tablet] Multivit-Min/Iron/Folic/Lutein 2 each PO DAILY 09/30/16 03/16/19 [Centrum Silver Women Tablet] Vitamin E Acetate [Vitamin E] 400 unit PO DAILY 09/30/16 03/16/19 Ascorbic Acid [Vitamin C] 1,000 mg PO DAILY 05/29/17 03/16/19 Ferrous Sulfate [High Potency Iron] 65 mg PO BID 11/04/18 03/16/19 Fish Oil/Borage/Flax/Om3,6,9#1 1,200 mg PO BID 11/04/18 03/16/19 [[place] 3-6-9 1,200 mg Softgel] Polyethylene Glycol 3350 [MiraLAX] 17 gm PO 3XW 11/04/18 03/16/19 Sertraline [Zoloft] 50 mg PO DAILY 11/04/18 03/16/19 Previous Rx's Medication Instructions Recorded Isosorbide MONOnitrate (24 HR) 30 mg PO DAILY tab.er.24h 03/09/18 [Imdur] predniSONE [PredniSONE] 40 mg PO DAILY 5 Days #10 tablet 02/27/19 Allergies Allergy/AdvReac Type Severity Reaction Status Date / Time oxycodone [Oxycodone] Allergy Vomiting Verified 03/16/19 20:19 Penicillins [PCN] Allergy Rash Verified 03/16/19 20:19 Constitutional: Reports: weakness. Denies: fever, chills Eyes: Denies: eye pain, eye discharge ENT ED: Denies: ear pain, throat pain Cardiovascular: Denies: chest pain, palpitations Respiratory: Denies: cough, dyspnea Gastrointestinal: Denies: abdominal pain, nausea Genitourinary: Denies: urgency, dysuria Musculoskeletal: Denies: back pain, neck pain Integumentary: Denies: rash, abrasion Neurological: Reports: weakness. Denies: headache, numbness Psychiatric: Denies: anxiety, depression Endocrine: Denies: fatigue, heat or cold intolerance Hematological/Lymphatic: Denies: easy bleeding, easy bruising Allergic/Immunologic: Denies: facial swelling, urticaria Past Medical History - Past Medical History Medical history: Reports: coronary artery disease, GERD, hyperlipidemia, hypertension, osteoporosis, renal disease, valvular heart disease, other Surgical history: Reports: angioplasty/stent, cholecystectomy, orthopedic, other Psychiatric history: Reports: no psych history - Social History Smoking Status: Former smoker Smokeless Tobacco Status: No Alcohol use: Reports: none Drug use: Reports: none Physical Exam - General Limitations: no limitations General appearance: alert Course Vital Signs O2 Sat by Pulse Oximetry 98 03/16/19 20:32 Temperature 98.7 F 03/16/19 20:34 Pulse Rate 73 03/16/19 20:34 Respiratory Rate 20 03/16/19 20:34 Blood Pressure 153/70 03/16/19 20:34 O2 Sat by Pulse Oximetry 98 03/16/19 20:34 Oxygen Delivery Oxygen Delivery Room Air Medical Decision Making - Lab Data Result diagrams: 03/16/19 20:52 03/16/19 20:52 Lab Results 03/16/19 03/16/19 03/16/19 Range/Units 20:52 20:52 21:34 WBC 12.9 H (4.3-11.1) K/mcL RBC 3.33 L (3.82-4.97) M/mcL Hgb 10.3 L (11.5-15.4) g/dL Hct 30.3 L (35.3-44.9) % MCV 91.0 (83.0-100.0) fL MCH 30.9 (28.0-33.3) pg MCHC 34.0 (31.6-35.5) g/dL RDW 13.3 (11.5-14.5) % Plt Count 222 (140-400) K/mcL MPV 8.6 L (9.4-12.4) fL Immature Gran % 1.0 (0-4) % Seg Neutrophils % 89.7 % Lymphocytes % 6.4 % Monocytes % 2.8 % Eosinophils % 0.0 % Basophils % 0.1 % Neutrophils # 11.6 H (1.6-8.9) K/mcL Lymphocytes # 0.8 (0.6-4.6) K/mcL Monocytes # 0.4 (0.0-1.3) K/mcL Eosinophils # 0.0 (0.0-0.6) K/mcL Basophils # 0.0 (0.0-0.2) K/mcL Sodium 119 L* (136-145) mEq/L Potassium 5.0 (3.5-5.1) mEq/L Chloride 87 L (98-107) mEq/L Carbon Dioxide 28 (23-29) mEq/L BUN 24 H (8-23) mg/dL Creatinine 1.19 (0.60-1.20) mg/dL Est GFR ( Amer) 54 L (> 60) Est GFR (Non-Af Amer) 44 L (> 60) BUN/Creatinine Ratio 20 (6-26) Glucose 137 H (70-105) mg/dL Calculated Osmolality 254 L (280-300) Calcium 8.7 (8.6-10.3) mg/dL Troponin I < 0.03 (< 0.04) ng/mL Urine Color Yellow (Yellow) Urine Clarity Clear (Clear) Urine pH 6.5 (5.0-8.0) pH Units Ur Specific [place] 1.012 (1.010-1.025) Urine Protein Negative (Neg-Trace) mg/dL Urine Glucose (UA) Normal (Normal) mg/dL Urine Ketones Negative (Negative) mg/dL Urine Blood Negative (Negative) Urine Nitrite Negative (Negative) Urine Bilirubin Negative (Negative) Urine Urobilinogen Normal (Normal) mg/dL Ur Leukocyte Esterase Negative (Negative) Ur Culture Indicated? NO (NO) Urine Creatinine mg/dL Urine Sodium mEq/L 03/16/19 Range/Units 21:34 WBC (4.3-11.1) K/mcL RBC (3.82-4.97) M/mcL Hgb (11.5-15.4) g/dL Hct (35.3-44.9) % MCV (83.0-100.0) fL MCH (28.0-33.3) pg MCHC (31.6-35.5) g/dL RDW (11.5-14.5) % Plt Count (140-400) K/mcL MPV (9.4-12.4) fL Immature Gran % (0-4) % Seg Neutrophils % % Lymphocytes % % Monocytes % % Eosinophils % % Basophils % % Neutrophils # (1.6-8.9) K/mcL Lymphocytes # (0.6-4.6) K/mcL Monocytes # (0.0-1.3) K/mcL Eosinophils # (0.0-0.6) K/mcL Basophils # (0.0-0.2) K/mcL Sodium (136-145) mEq/L Potassium (3.5-5.1) mEq/L Chloride (98-107) mEq/L Carbon Dioxide (23-29) mEq/L BUN (8-23) mg/dL Creatinine (0.60-1.20) mg/dL Est GFR ( Amer) (> 60) Est GFR (Non-Af Amer) (> 60) BUN/Creatinine Ratio (6-26) Glucose (70-105) mg/dL Calculated Osmolality (280-300) Calcium (8.6-10.3) mg/dL Troponin I (< 0.04) ng/mL Urine Color (Yellow) Urine Clarity (Clear) Urine pH (5.0-8.0) pH Units Ur Specific [place] (1.010-1.025) Urine Protein (Neg-Trace) mg/dL Urine Glucose (UA) (Normal) mg/dL Urine Ketones (Negative) mg/dL Urine Blood (Negative) Urine Nitrite (Negative) Urine Bilirubin (Negative) Urine Urobilinogen (Normal) mg/dL Ur Leukocyte Esterase (Negative) Ur Culture Indicated? (NO) Urine Creatinine 25 mg/dL Urine Sodium 31.5 mEq/L Attestation Statement - Attestation Attestation: I reviewed the residents documentation and agree with the residents assessment and plan of care. I have personally had face to face time with the patient. (Brief History, Brief Exam, and MDM) I personally supervised and was present for the haas/critical portions of the following procedures completed by the resident: EKG 73 year old female presnts to the ED with complaints og weaknes and falls and it appaers that she has a new hyponatremia of 119 and has been experieicn g increased desire for fluid intake of recent and has also been on steroids therapy and has been experincine increased soft stools. PAtinet otherwise appers euvoluemic at this time. Our concerns are for SIADH vs leigonella pneumoina vs adrenal insufficiency. WE have dsicussed case with nephrology Dr. Ingram who recommends flid restriction until she is at 127 and also to do q4 check sodium. I discusssed case with the hsopitalist and she has been accepted to medicine.
[2019-03-16 23:08] LABS: Thyroid Stimulating Hormone 0.473 mcIU/mL (0.340-5.600)
--- NOTE | 2019-03-17 00:13 | Internal Med History&Physical ---
Date of Encounter: 03/17/19 Time of Encounter: 00:09 Internal Medicine - H&P: HPI Admitted From: Home History of present illness: Ms. Locke is a 73 year old female past medical history of cardiac catheterization with stent placement in October of this year with TVR presenting to [facility] ED due to pain in her hip and low back. The patient states that she fell last Friday night after getting dizzy and falling onto her left hip. Patient states pain is 8 out of 10 and has been progressively worsening although she has been able to ambulate patient states that she has been experiencing multiple recurrent falls since this time denies losing consciousness or any other trauma states that she has had general malaise over the past week. CT scan negative for acute intracranial pathology, patient was found be hyponatremic in the ED with a sodium 119 nephrology was consulted who recommended fluid restriction at this time due to concerns of psychogenic polydipsia with every 4 hours BMP is. We will aim for a sodium of 127 within 12 hours. Past Med Surg Social Fam HX - Past Medical History Medical history: coronary artery disease, GERD, hyperlipidemia, hypertension, osteoporosis, renal disease, valvular heart disease, other Additional medical history: sepsis september 2014, heart stent 2013 @ [place] Psychiatric history: no psych history - Past Surgical History Surgical History: angioplasty/stent, cholecystectomy, orthopedic, other Additional surgical history: hip surgeries, TAVR. back surgery. shouder. heart valve replacement. carpal tunnel - Social History Smoking Status: Former smoker Smokeless Tobacco Status: No Alcohol use: none Drug use: none - Family History Mother Living Status: Still Living Hx Family Neurologic Disorders: Yes (alzheimers) Internal Medicine - H&P: Meds Lansoprazole [Prevacid] 30 mg PO DAILY 03/22/15 [History] Zolpidem [Ambien] 10 mg PO HS PRN 03/22/15 [History] Nitroglycerin 0.4 mg SL AD PRN 03/23/15 [History] Aspirin [Lo-Dose Aspirin EC] 81 mg PO QPM 09/30/16 [History] Calcium Carbonate/Vitamin D3 [Calcium 600 + Vit D Tablet] 2 tab PO DAILY 09/30/16 [History] Multivit-Min/Iron/Folic/Lutein [Centrum Silver Women Tablet] 2 tab PO DAILY 09/30/16 [History] Vitamin E Acetate [Vitamin E] 400 unit PO DAILY 09/30/16 [History] Fish Oil/Borage/Flax/Om3,6,9#1 [[place] 3-6-9 1,200 mg Softgel] 1,200 mg PO BID 11/04/18 [History] Polyethylene Glycol 3350 [MiraLAX] 17 gm PO 3XW 11/04/18 [History] Sertraline [Zoloft] 50 mg PO DAILY 11/04/18 [History] Atorvastatin [Lipitor] 40 mg PO HS 03/16/19 [History] Clopidogrel [Plavix] 75 mg PO DAILY 03/16/19 [History] Cyclobenzaprine [Flexeril] 10 mg PO 2-3XD 03/16/19 [History] Ferrous Sulfate [Iron] 325 mg PO BID 03/16/19 [History] HYDROcodone/Acet 10/325 mg [[place] 10-325 mg] 1 tab PO Q8HR PRN 03/16/19 [History] Isosorbide MONOnitrate (24 HR) [Imdur] 30 mg PO QAM 03/16/19 [History] Lisinopril [Zestril] 10 mg PO QAM 03/16/19 [History] Metoprolol [Lopressor] 25 mg PO QAM 03/16/19 [History] predniSONE [PredniSONE] 20 mg PO TID 03/16/19 [History] Allergy/AdvReac Type Severity Reaction Status Date / Time oxycodone [Oxycodone] Allergy Vomiting Verified 03/16/19 20:19 Penicillins [PCN] Allergy Rash Verified 03/16/19 20:19 All Systems PM: A 10-system review of systems was performed and is negative for pertinent findings except as documented above in the HPI. - Constitutional Vitals: Temp Pulse Resp BP Pulse Ox 98.7 F 73 20 151/67 98 03/16/19 20:34 03/16/19 20:34 03/16/19 23:58 03/16/19 23:58 03/16/19 20:34 Internal Med - H&P Results - Labs CBC & Chem 7: 03/16/19 20:52 03/16/19 20:52 Labs: Short CBC 03/16/19 Range/Units 20:52 WBC 12.9 H (4.3-11.1) K/mcL Hgb 10.3 L (11.5-15.4) g/dL Hct 30.3 L (35.3-44.9) % Plt Count 222 (140-400) K/mcL Neutrophils # 11.6 H (1.6-8.9) K/mcL BMP 03/16/19 20:52 Sodium 119 L* Potassium 5.0 Chloride 87 L Carbon Dioxide 28 BUN 24 H Creatinine 1.19 Glucose 137 H Calcium 8.7 Cardiac Enzymes 03/16/19 Range/Units 20:52 Troponin I < 0.03 (< 0.04) ng/mL Urine 03/16/19 Range/Units 21:34 Urine Color Yellow (Yellow) Urine Clarity Clear (Clear) Urine pH 6.5 (5.0-8.0) pH Units Ur Specific [place] 1.012 (1.010-1.025) Urine Protein Negative (Neg-Trace) mg/dL Urine Glucose (UA) Normal (Normal) mg/dL - Impressions ITS Impressions Lumbar Spine CT 03/16/19 22:08 IMPRESSION: 1. Severe osteopenia with superimposed diffuse degenerative changes in the lumbar spine and pelvis. 2. Bilateral total hip prosthesis. 3. No acute fracture. 4. Skin and subcutaneous tissues on the left side at the level of the joint demonstrating some thickening and underlying induration and fluid which may reflect contusion and hematoma in the setting of trauma or could be cellulitis. Please correlate with physical exam. D/ / Wolf Mitchell MD / Wolf Mitchell MD Interpreting Provider: Wofl Mitchell MD Pelvis CT 03/16/19 22:08 IMPRESSION: 1. Severe osteopenia with superimposed diffuse degenerative changes in the lumbar spine and pelvis. 2. Bilateral total hip prosthesis. 3. No acute fracture. 4. Skin and subcutaneous tissues on the left side at the level of the joint demonstrating some thickening and underlying induration and fluid which may reflect contusion and hematoma in the setting of trauma or could be cellulitis. Please correlate with physical exam. D/ / Wolf Mitchell MD / Wolf Mitchell MD Interpreting Provider: Wolf Mitchell MD Chest X-Ray 03/16/19 22:19 IMPRESSION: No acute cardiopulmonary findings. Shallow inspiratory effort with unchanged chronic features of fibrotic lung disease. D/ / Osvaldo Chang / Osvaldo Chang Interpreting Provider: Osvaldo Chang - Time Spent With Patient Total time spent is greater than 50% in coordination of care (as documented) at patient's floor/unit and/or counseling patient:
[2019-03-17 01:24] LABS: Calcium 8.7 mg/dL (8.6-10.3); Potassium 4.9 mEq/L (3.5-5.1)
[2019-03-17] MEDS ORDERED: Naloxone 0.4 MG/ML INJ IVP PRN (03:12)
[2019-03-17] MEDS ORDERED: *HR* HYDROcodone/Acet 10/325 mg TABLET PO PRN (03:14)
--- NOTE | 2019-03-17 03:54 | Internal Med History&Physical ---
Date of Encounter: 03/17/19 Time of Encounter: 02:53 Internal Medicine - H&P: HPI Chief complaint: Hyponatremia Admitted From: Emergency Dept Plans for Post Hospital Care: Home History of present illness: Ms. Locke is a 73 year old female Patient presented to the hospital with dizziness and pain on the left side. She has been having falls at home where she begins feeling dizzy and weak. She fell about 1 week ago landing on her left hip and left arm. She has continued to have loss of balance and weakness with no improvement. Because her dizziness was not improving, she felt that she was unsafe to be alone in her home. She called an ambulance to transfer her to the hospital. Emergency department vital signs within normal limits CBC: White count 12.9, hemoglobin 10.3, platelets 222. BMP: Notable for Sodium 119, potassium 5.0. Initial troponin undetectable TSH 0.473 Random cortisol level 8.9 Urinalysis negative for infection Chest x-ray showed no acute findings Pelvis CT: Severe osteopenia, bilateral total hip replacements. No acute fracture. Contusion/ hematoma noted on the left side of the hip joint. EKG: Sinus arrhythmia, rate 75, QTC 420 ms. No ischemic changes. In the emergency department, nephrology was consultative due to the low sodium. Recommended not correcting sodium greater than 127 in 12 hours. They will see the patient in the morning. Patient was admitted to the hospital for further management. Upon my evaluation, patient is resting comfortably in hospital bed in no acute distress. She denies chest pain, abdominal pain, nausea, vomiting, diarrhea, constipation and dysuria. She has history of hyponatremia in the past. She has had increased urine output, but states that she has not been drinking more water lately. She is a full code. Past Med Surg Social Fam HX - Past Medical History Medical history: coronary artery disease, GERD, hyperlipidemia, hypertension, osteoporosis, renal disease, valvular heart disease, other Additional medical history: sepsis september 2014, heart stent 2019 @ [place], [facility] 2019 Psychiatric history: no psych history - Past Surgical History Surgical History: angioplasty/stent, cholecystectomy, orthopedic, other Additional surgical history: hip surgeries, TAVR, sonia. back surgery. shouder. heart valve replacement. carpal tunnel - Social History Smoking Status: Former smoker Smokeless Tobacco Status: No Alcohol use: none Drug use: none - Family History Mother Living Status: Still Living Hx Family Neurologic Disorders: Yes (alzheimers) Brother Living Status: Still Living Hx Family Cardiac Disorders: Yes Internal Medicine - H&P: Meds Lansoprazole [Prevacid] 30 mg PO DAILY 03/22/15 [History] Zolpidem [Ambien] 10 mg PO HS PRN 03/22/15 [History] Nitroglycerin 0.4 mg SL AD PRN 03/23/15 [History] Aspirin [Lo-Dose Aspirin EC] 81 mg PO QPM 09/30/16 [History] Calcium Carbonate/Vitamin D3 [Calcium 600 + Vit D Tablet] 2 tab PO DAILY 09/30/16 [History] Multivit-Min/Iron/Folic/Lutein [Centrum Silver Women Tablet] 2 tab PO DAILY 09/30/16 [History] Vitamin E Acetate [Vitamin E] 400 unit PO DAILY 09/30/16 [History] Fish Oil/Borage/Flax/Om3,6,9#1 [[place] 3-6-9 1,200 mg Softgel] 1,200 mg PO BID 11/04/18 [History] Polyethylene Glycol 3350 [MiraLAX] 17 gm PO 3XW 11/04/18 [History] Sertraline [Zoloft] 50 mg PO DAILY 11/04/18 [History] Atorvastatin [Lipitor] 40 mg PO HS 03/16/19 [History] Clopidogrel [Plavix] 75 mg PO DAILY 03/16/19 [History] Cyclobenzaprine [Flexeril] 10 mg PO 2-3XD 03/16/19 [History] Ferrous Sulfate [Iron] 325 mg PO BID 03/16/19 [History] HYDROcodone/Acet 10/325 mg [[place] 10-325 mg] 1 tab PO Q8HR PRN 03/16/19 [History] Isosorbide MONOnitrate (24 HR) [Imdur] 30 mg PO QAM 03/16/19 [History] Lisinopril [Zestril] 10 mg PO QAM 03/16/19 [History] Metoprolol [Lopressor] 25 mg PO QAM 03/16/19 [History] predniSONE [PredniSONE] 20 mg PO TID 03/16/19 [History] Allergy/AdvReac Type Severity Reaction Status Date / Time oxycodone [Oxycodone] Allergy Vomiting Verified 03/16/19 20:19 Penicillins [PCN] Allergy Rash Verified 03/16/19 20:19 All Systems PM: A 10-system review of systems was performed and is negative for pertinent findings except as documented above in the HPI. - Constitutional Vitals: Temp Pulse Resp BP Pulse Ox 98 F 66 15 171/72 99 03/17/19 00:38 03/17/19 00:38 03/17/19 00:38 03/17/19 00:38 03/17/19 00:57 General appearance: Present: cooperative, A&O X 3, pleasant, no acute distress, answers questions appropriately Exam: - - Head Head exam: Present: normal inspection - Eye Eye exam: Present: EOMI, normal appearance - Respiratory Respiratory exam: Present: CTAB. Absent: rales, respiratory distress, rhonchi, wheezes - Cardiovascular Cardiovascular exam: Present: RRR. Absent: diastolic murmur, systolic murmur - GI/Abdominal GI/Abdominal exam: Present: normal bowel sounds, soft. Absent: tenderness - Extremities Exam Extremities exam: Present: warm, radial pulses palpable and symmetrical. Absen t: calf tenderness, pedal edema, tenderness Additional comments: Bruises to left upper arm and shoulder - Neurological Exam Neurological exam: Present: no focal deficits, strengths equal and symetr throughout. Absent: motor sensory deficit, facial droop, speech deficit - Skin Skin exam: Present: dry, normal color, warm Internal Med - H&P Results - Labs CBC & Chem 7: 03/17/19 05:22 03/17/19 05:24 Labs: Short CBC 03/16/19 Range/Units 20:52 WBC 12.9 H (4.3-11.1) K/mcL Hgb 10.3 L (11.5-15.4) g/dL Hct 30.3 L (35.3-44.9) % Plt Count 222 (140-400) K/mcL Neutrophils # 11.6 H (1.6-8.9) K/mcL BMP 03/16/19 03/17/19 20:52 00:50 Sodium 119 L* 125 L Potassium 5.0 4.9 Chloride 87 L 88 L Carbon Dioxide 28 29 BUN 24 H 23 Creatinine 1.19 1.13 Glucose 137 H 113 H Calcium 8.7 8.7 Cardiac Enzymes 03/16/19 Range/Units 20:52 Troponin I < 0.03 (< 0.04) ng/mL Urine 03/16/19 Range/Units 21:34 Urine Color Yellow (Yellow) Urine Clarity Clear (Clear) Urine pH 6.5 (5.0-8.0) pH Units Ur Specific [place] 1.012 (1.010-1.025) Urine Protein Negative (Neg-Trace) mg/dL Urine Glucose (UA) Normal (Normal) mg/dL - Impressions ITS Impressions Lumbar Spine CT 03/16/19 22:08 IMPRESSION: 1. Severe osteopenia with superimposed diffuse degenerative changes in the lumbar spine and pelvis. 2. Bilateral total hip prosthesis. 3. No acute fracture. 4. Skin and subcutaneous tissues on the left side at the level of the joint demonstrating some thickening and underlying induration and fluid which may reflect contusion and hematoma in the setting of trauma or could be cellulitis. Please correlate with physical exam. D/ / Wolf Mitchell MD / Wolf Mitchell MD Interpreting Provider: Wolf Mitchell MD Pelvis CT 03/16/19 22:08 IMPRESSION: 1. Severe osteopenia with superimposed diffuse degenerative changes in the lumbar spine and pelvis. 2. Bilateral total hip prosthesis. 3. No acute fracture. 4. Skin and subcutaneous tissues on the left side at the level of the joint demonstrating some thickening and underlying induration and fluid which may reflect contusion and hematoma in the setting of trauma or could be cellulitis. Please correlate with physical exam. D/ / Wolf Mitchell MD / Wolf Mitchell MD Interpreting Provider: Wolf Mitchell MD Chest X-Ray 03/16/19 22:19 IMPRESSION: No acute cardiopulmonary findings. Shallow inspiratory effort with unchanged chronic features of fibrotic lung disease. D/ / Osvaldo Chang / Osvaldo Chang Interpreting Provider: Osvaldo Chang - Assessment and Plan (1) Hyponatremia Current Visit: Yes Status: Chronic Assessment and plan: History of hyponatremia, 119 in the ER today. Urine sodium 31.5 in the ER, urine osmolality still pending for unknown reason. Nephrology called in ER, will see patient in the morning. Follow up nephrology recommendations Fluid restriction Monitor sodium levels Q 4 hours. (2) Falls Current Visit: Yes Status: Acute Assessment and plan: Patient has had multiple falls at home and feeling weak. Could be related to low sodium level, she has had lost her balance on several occasions causing her to fall. No osseous abnormalities on imaging. Patient also prescribed norco 10- 325mg tablets Q8H PRN. Potentially could be related to her falls as well. Echocardiogram not performed since September prior to valve replacement surgery. Repeat echocardiogram PT/OT consultation, follow up recommendations. Consider modifying pain medication at discharge. Qualifiers: Encounter type: initial encounter Qualified Code(s): W19.XXXA - Unspecified fall, initial encounter (3) Hyperglycemia Current Visit: Yes Status: Acute Assessment and plan: Patient denies history of diabetes. Check A1c in the morning (4) DVT prophylaxis Current Visit: Yes Status: Acute Assessment and plan: SCDs - Time Spent With Patient Total time spent is greater than 50% in coordination of care (as documented) at patient's floor/unit and/or counseling patient: Greater than 35 minutes
[2019-03-17 06:15] LABS: BUN/Creatinine Ratio 24 (6-26); Blood Urea Nitrogen 25 mg/dL (8-23); Calcium 9.1 mg/dL (8.6-10.3); Carbon Dioxide 31 mEq/L (23-29); Chloride 90 mEq/L (98-107); Glucose 99 mg/dL (70-105); Osmolality,Calculated 268 (280-300); Potassium 4.5 mEq/L (3.5-5.1); Sodium 127 mEq/L (136-145); eGFR For African Americans > 60 (> 60); eGFR For Non-African Americans 51 (> 60)
[2019-03-17 06:18] LABS: Hematocrit 33.3 % (35.3-44.9); Hemoglobin 11.1 g/dL (11.5-15.4); Mean Corpuscular HGB Conc 33.3 g/dL (31.6-35.5); Mean Corpuscular Hemoglobin 30.5 pg (28.0-33.3); Mean Corpuscular Volume 91.5 fL (83.0-100.0); Platelet Count 251 K/mcL (140-400); Red Blood Count 3.64 M/mcL (3.82-4.97); Red Cell Distribution Width 13.2 % (11.5-14.5); White Blood Count 13.1 K/mcL (4.3-11.1)
[2019-03-17] MEDS ORDERED: D5% in Water 500 ML IVC SCH ×2 (07:30→10:51)
[2019-03-17 08:30] LABS: Estimated Average Glucose 111 mg/dl
[2019-03-17] MEDS: predniSONE 20 MG TABLET PO SCH ×3 (09:04→20:34)
[2019-03-17 09:58] LABS: BUN/Creatinine Ratio 24 (6-26); Blood Urea Nitrogen 25 mg/dL (8-23); Carbon Dioxide 31 mEq/L (23-29); Chloride 89 mEq/L (98-107); Glucose 116 mg/dL (70-105); Osmolality,Calculated 273 (280-300); Sodium 129 mEq/L (136-145); eGFR For African Americans > 60 (> 60); eGFR For Non-African Americans 51 (> 60)
[2019-03-17] MEDS: Isosorbide MONOnitrate (24 HR) 30 MG TAB.ER.24H PO SCH (11:56)
[2019-03-17] MEDS: Cholecalciferol (D-3) 1,000 UNIT (25MCG) TABLET PO SCH (11:56)
[2019-03-17] MEDS: Vitamin E 200 UNIT (90MG) CAPSULE PO SCH (11:56)
--- NOTE | 2019-03-17 12:35 | Event Note ---
Date of Encounter: 03/17/19 Time of Encounter: 09:40 History and physical reviewed. Mrs. Locke is a 73-year-old female with history of chronic leukocytosis, iron deficiency anemia, chronic back pain, compression fracture of T11-L2, aortic stenosis s/p TAVR, CAD status post PCI who came into the hospital due to weakness. Chronic hyponatremia: Unknown etiology, pain induced? SIADH on Zoloft??, sodium 119 at presentation, 129 now. On D5 water for goal of sodium 127 at 10 PM today. Urine sodium 31, no CKD or hydrochlorothiazide. No history of binge drinking. Cortisol and TSH levels are normal. Nephrology is consulted. Urine osmolarity is pending. Patient also is worked up for interstitial pneumonitis and bronchiectasis which could contribute to her hyponatremia. She follows with rheumatology as outpatient. Chronic back pain: Recent Lumbar X ray with finding of severe degenerative changes and compression fracture of T11-L2. Will consult spinal surgery. Patient is on steroid therapy for her back. Will continue. Fall: consult PT/OT, orthopedic surgery. fall precautions. CAD s/p PCI: continue DAPT,lipitor and BB. s/p TAVR: repeat Echo ordered. Chronic leukocytosis: No signs of active infection. Used to follow with oncology as outpatient. On chronic steroid therapy for her back. HTN: Continue home medication DVT prophylaxis: SC heparin
[2019-03-17 14:31] LABS: Calcium 8.7 mg/dL (8.6-10.3); Potassium 4.1 mEq/L (3.5-5.1)
--- NOTE | 2019-03-17 14:52 | Nephrology Consult Note ---
<Tigist Denson - Last Filed: 03/17/19 15:42> Date of Encounter: 03/17/19 Time of Encounter: 14:50 Assessment and Plan (1) Hyponatremia Status: Chronic Patient has had hyponatremia in the past, but not quite this low. Admits to drinking more fluid than usual. Hyponatremia likely related to increased PO consumption. Initial Na was 119, has corrected to 127. Liberalize salt in diet. Continue Na checks. Uric acid and Serum osmo ordered for today. Tsh and Cortisol normal. Urine Osmo 274, elevated slightly elevated. (2) Falls Status: Acute Hospital fall protocol per policy. Qualifiers: Encounter type: initial encounter Qualified Code(s): W19.XXXA - Unspecified fall, initial encounter (3) Weakness Status: Acute Consider PT/OT consult. (4) Anemia Status: Chronic Hgb is 11.1, stable. Qualifiers: Anemia type: unspecified type Qualified Code(s): D64.9 - Anemia, unspecified History of Present Illness - Reason for Consult Consult date: 03/17/19 hyponatremia Requesting physician: Miriam Dixon - Chief Complaint hip and back pain - History of Present Illness Ms. Locke is a 73 year old female who presented to ED for back and hip pain. She fell approximately 1 weeks ago. She reports feeling dizzy and lightheaded, did not lose consciousness. [facility] were consulted to manage hyponatremia. She states she has been told several times in the past that her NA is low, and she was encouraged to eat salt in diet. She does admit she has been very thirsty lately at home. She admits to drinking 2-3 bottles of water a day, 2-3 bottles of gatorade a day, as well as a few cans of pop. Denies chest pain or shortness of breath. Denies nausea, vomiting, diarrhea. She has never seen a accounts payable processor in the past, her Na has been managed by PCP. Baseline Na appears to be 125-103. Initial was 119. She is a former smoker, denies tobacco use now. Denies etoh or illicit drug use. No FH of kidney issues. Past Med Surg Social Fam HX - Past Medical History Medical history: coronary artery disease, GERD, hyperlipidemia, hypertension, osteoporosis, renal disease, valvular heart disease, other Additional medical history: sepsis september 2014, heart stent 2019 @ [place], [facility] 2019 Psychiatric history: no psych history - Past Surgical History Surgical History: angioplasty/stent, cholecystectomy, orthopedic, other Additional surgical history: hip surgeries, TAVR, sonia. back surgery. shouder. heart valve replacement. carpal tunnel - Social History Smoking Status: Former smoker Smokeless Tobacco Status: No Alcohol use: none Drug use: none - Family History Mother Living Status: Still Living Hx Family Neurologic Disorders: Yes (alzheimers) Brother Living Status: Still Living Hx Family Cardiac Disorders: Yes Medications and Allergies Lansoprazole [Prevacid] 30 mg PO DAILY 03/22/15 [History] Zolpidem [Ambien] 10 mg PO HS PRN 03/22/15 [History] Nitroglycerin 0.4 mg SL AD PRN 03/23/15 [History] Aspirin [Lo-Dose Aspirin EC] 81 mg PO QPM 09/30/16 [History] Calcium Carbonate/Vitamin D3 [Calcium 600 + Vit D Tablet] 2 tab PO DAILY 09/30/16 [History] Multivit-Min/Iron/Folic/Lutein [Centrum Silver Women Tablet] 2 tab PO DAILY 09/30/16 [History] Vitamin E Acetate [Vitamin E] 400 unit PO DAILY 09/30/16 [History] Fish Oil/Borage/Flax/Om3,6,9#1 [[place] 3-6-9 1,200 mg Softgel] 1,200 mg PO BID 11/04/18 [History] Polyethylene Glycol 3350 [MiraLAX] 17 gm PO 3XW 11/04/18 [History] Sertraline [Zoloft] 50 mg PO DAILY 11/04/18 [History] Atorvastatin [Lipitor] 40 mg PO HS 03/16/19 [History] Clopidogrel [Plavix] 75 mg PO DAILY 03/16/19 [History] Cyclobenzaprine [Flexeril] 10 mg PO 2-3XD 03/16/19 [History] Ferrous Sulfate [Iron] 325 mg PO BID 03/16/19 [History] Isosorbide MONOnitrate (24 HR) [Imdur] 30 mg PO QAM 03/16/19 [History] Lisinopril [Zestril] 10 mg PO QAM 03/16/19 [History] Metoprolol [Lopressor] 25 mg PO QAM 03/16/19 [History] Hydrocodone/Acetaminophen [[place] 10-325 Tablet] 1 each PO Q8H 7 Days #21 tablet 03/19/19 [Rx] predniSONE [Prednisone] 10 mg PO DAILY #50 tab.ds.pk 03/19/19 [Rx] Allergy/AdvReac Type Severity Reaction Status Date / Time oxycodone [Oxycodone] Allergy Vomiting Verified 03/16/19 20:19 Penicillins [PCN] Allergy Rash Verified 03/16/19 20:19 Review of Systems All Systems review (narrative): The remainder of the systems are negative. Constitutional: no chills, no fatigue, no fever(s) Nose, mouth and throat: dizziness Cardiovascular: no chest pain, no dyspnea, no edema, no irregular heart rhythm Gastrointestinal: no diarrhea, no nausea, no vomiting Genitourinary Female: no urinary frequency, no urinary hesitancy, no urinary urgency Exam - Vital Signs Vital signs: Initial Vital Signs Pulse Ox 98 03/16/19 20:32 Vital Signs - Last 8 Hours Temp Pulse Resp BP Pulse Ox 03/17/19 11:09 98.3 F 76 14 136/62 97 03/17/19 07:07 98.3 F 69 18 179/74 100 Intake and Output 03/16/19 03/17/19 03/17/19 23:59 07:59 15:59 Intake Total 120 / 120 Output Total 2500 / 3650 1150 / 3650 Balance -2500 / -3530 -1030 / -3530 Intake: Oral 120 / 120 Output: Straight Cath 600 / 600 Catheter 2500 / 3050 550 / 3050 Other: Meal Lunch Percent of Meal Consumed 50% Weight 89.766 kg 87.9 kg Patient Weight 03/17/19 23:59 Weight 87.9 kg - General Appearance General appearance: well-developed, well-nourished EENT: ATNC, hearing intact, vision intact Neck: supple Respiratory: clear Cardiology: no edema, normal S1, normal S2 Gastrointestinal: normoactive bowel sounds, no tenderness, no guarding Integumentary: no rash, warm and dry Neurologic: alert and oriented x3 Musculoskeletal: no deformities, no erythema Psychiatric: mood/affect appropriate, cooperative Results - Lab Results 03/17/19 05:22 03/17/19 12:52 Most recent lab results 03/17/19 03/17/19 03/17/19 05:24 09:16 12:52 Calcium 9.1 9.0 8.7 Consult Discharge Plan - Plan Instructions: Hydrocodone/Acetaminophen (By mouth), Prednisone (By mouth) Referrals: Slim Lee Jr, MD [Partnered Physician] - 03/26/19 11:00 am Oswaldo Al MD [Primary Care Provider] - 03/25/19 1:30 pm Prescriptions: Hydrocodone/Acetaminophen [[place] 10-325 Tablet] 1 each PO Q8H 7 Days #21 tablet Prescription Printed predniSONE [Prednisone] 10 mg PO DAILY #50 tab.ds.pk Prescription Printed <Mckenzie Morrison - Last Filed: 03/28/19 23:02> Date of Encounter: 03/17/19 Assessment and Plan (1) Hyponatremia Status: Chronic (2) Falls Status: Resolved Qualifiers: Encounter type: initial encounter Qualified Code(s): W19.XXXA - Unspecified fall, initial encounter (3) Weakness Status: Acute (4) Anemia Status: Chronic Qualifiers: Anemia type: unspecified type Qualified Code(s): D64.9 - Anemia, unspecified Exam - Vital Signs Vital signs: Initial Vital Signs Pulse Ox 98 03/16/19 20:32 Results - Lab Results 03/19/19 05:34 03/19/19 05:34 - Attending Attestation I examined this patient and my medical decision-making was reviewed with the Resident Physician/WEEKEND ANCHOR. I agree with the documented findings, disposition and treatment plan as described except to the extent set forth below. In brief; 73 y o female with PMH of chronic hyponatremia admitted with hip and back pain one week after fall and noted to have sodium down to 119 from excessive fluids intake lately. Initial correction with NS improved sodium to 127.Renal consulted for management. On exam NAD, pleasant, lungs clear, Heart S1 S2, Abd soft NT/ND, Ext with no LE edema and Neuro AAOx3. No need for more IVF at this time. Liberalize sodium in diet. Hyponatremia workup as noted.
[2019-03-17 17:05] LABS: Uric Acid 4.9 mg/dL (2.3-7.6)
[2019-03-17] MEDS: Aspirin Enteric Coated 81 MG Tablet PO SCH (17:34)
[2019-03-17] MEDS: *HR* Heparin 5,000 UNIT/ML VIAL SQ SCH (17:34)
[2019-03-17] MEDS: *HR* HYDROcodone/Acet 10/325 mg TABLET PO PRN (17:49)
[2019-03-17 19:12] LABS: Calcium 8.5 mg/dL (8.6-10.3); Potassium 4.5 mEq/L (3.5-5.1)
[2019-03-17 22:59] LABS: Calcium 8.6 mg/dL (8.6-10.3); Potassium 4.7 mEq/L (3.5-5.1)
[2019-03-17] MEDS ORDERED: 0.9 % Sodium Chloride 1,000 ML IVC SCH (23:30)
[2019-03-18 01:38] LABS: Hematocrit 36.9 % (35.3-44.9); Hemoglobin 12.1 g/dL (11.5-15.4); Mean Corpuscular HGB Conc 32.8 g/dL (31.6-35.5); Mean Corpuscular Hemoglobin 30.6 pg (28.0-33.3); Mean Corpuscular Volume 93.2 fL (83.0-100.0); Mean Platelet Volume 8.5 fL (9.4-12.4); Platelet Count 230 K/mcL (140-400); Red Blood Count 3.96 M/mcL (3.82-4.97); Red Cell Distribution Width 13.5 % (11.5-14.5); White Blood Count 12.2 K/mcL (4.3-11.1)
[2019-03-18 01:54] LABS: BUN/Creatinine Ratio 25 (6-26); Blood Urea Nitrogen 26 mg/dL (8-23); Calcium 8.8 mg/dL (8.6-10.3); Carbon Dioxide 27 mEq/L (23-29); Chloride 89 mEq/L (98-107); Glucose 123 mg/dL (70-105); Osmolality,Calculated 268 (280-300); Potassium 4.5 mEq/L (3.5-5.1); Sodium 126 mEq/L (136-145); eGFR For African Americans > 60 (> 60); eGFR For Non-African Americans 51 (> 60)
[2019-03-18 05:55] LABS: BUN/Creatinine Ratio 25 (6-26); Blood Urea Nitrogen 26 mg/dL (8-23); Calcium 9.2 mg/dL (8.6-10.3); Carbon Dioxide 28 mEq/L (23-29); Chloride 91 mEq/L (98-107); Glucose 114 mg/dL (70-105); Osmolality,Calculated 272 (280-300); Potassium 4.5 mEq/L (3.5-5.1); Sodium 128 mEq/L (136-145); eGFR For African Americans > 60 (> 60); eGFR For Non-African Americans 52 (> 60)
[2019-03-18] MEDS: *HR* Heparin 5,000 UNIT/ML VIAL SQ SCH ×2 (05:56→17:49)
--- NOTE | 2019-03-18 06:39 | Electrocardiograph Report ---
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
[2019-03-18] MEDS ORDERED: 0.9 % Sodium Chloride 1,000 ML IVC SCH (07:45)
[2019-03-18] MEDS: Vitamin E 200 UNIT (90MG) CAPSULE PO SCH (09:03)
[2019-03-18] MEDS: Isosorbide MONOnitrate (24 HR) 30 MG TAB.ER.24H PO SCH (09:03)
[2019-03-18] MEDS: Cholecalciferol (D-3) 1,000 UNIT (25MCG) TABLET PO SCH (09:04)
[2019-03-18] MEDS: predniSONE 20 MG TABLET PO SCH ×2 (09:04→20:55)
[2019-03-18] MEDS: *HR* HYDROcodone/Acet 10/325 mg TABLET PO PRN (09:18)
--- NOTE | 2019-03-18 11:57 | Internal Med Progress Note ---
Hospitalist Progress Note - Encounter Date of Encounter: 03/18/19 Time of Encounter: 10:40 - Subjective Interval History: Patient was seen this morning. She had no complaint. She feels better after she had had back brace. She denied chest pain, shortness of breath or palpitation. - Exam Vitals: Temp Pulse Resp BP Pulse Ox 98.1 F 75 16 143/74 99 03/18/19 07:54 03/18/19 07:54 03/18/19 07:54 03/18/19 07:54 03/18/19 07:54 Exam: General: Patient is alert, oriented 3. Head: Atraumatic, normal inspection, normocephalic. Eye: EOMI, PERRLA, ENT: Mucous membranes moist. No odontogenic infection noted. Neck: Normal inspection, no meningismus. Respiratory: Bibasilar crackles. Cardiovascular: Regular rate and regular rhythm, low pitched murmur in the right sternal border GI: Soft, nondistended, normal bowel sounds. Extremities:No joint swelling, pedal edema, or tenderness noted. Neurological: Alert, oriented 3, no focal deficits. Psychiatric: normal affect, normal mood. Skin> hematoma over the left hip. - - Assessment and Plan (1) Hyponatremia Current Visit: Yes Status: Chronic (2) Falls Current Visit: Yes Status: Acute (3) Hyperglycemia Current Visit: Yes Status: Acute (4) DVT prophylaxis Current Visit: Yes Status: Acute (5) Osteoarthritis of spine Current Visit: Yes Status: Acute (6) Compression fracture of L3 vertebra Current Visit: Yes Status: Acute (7) CAD (coronary artery disease) Current Visit: Yes Status: Chronic (8) S/P TAVR (transcatheter aortic valve replacement) Current Visit: Yes Status: Chronic - Summary of Assessment and Plan Summary of Assessment and Plan: History and physical reviewed. Mrs. Locke is a 73-year-old female with history of chronic leukocytosis, iron deficiency anemia, chronic back pain, compression fracture of T11-L2, aortic stenosis s/p TAVR, CAD status post PCI who came into the hospital due to weakness. Chronic hyponatremia: Unknown etiology, pain induced?Low salt intake. sodium 119 at presentation, 128 today within a gaol. On NS. Urine sodium 31, no CKD or hydrochlorothiazide. No history of binge drinking. Cortisol and TSH levels are normal. Nephrology is consulted. Multiple compression fractures: MRI lumbar spine with finding of acute L3 fracture, D/w Dr. Lee, she had a brace placed with instant relieve. Patient is on steroid therapy for her back will titrate down. DEXA scan is scheduled as outpatient. Pain management with home does open his. Fall: consult PT/OT, orthopedic surgery. fall precautions. CAD s/p PCI: continue DAPT,lipitor and BB. s/p TAVR: repeat Echo showed normal vlavular function. Chronic leukocytosis: No signs of active infection. Used to follow with oncology as outpatient. On chronic steroid therapy for her back. HTN: Continue home medication DVT prophylaxis: SC heparin - Time Spent with Patient Total time spent is greater than 50% in coordination of care (as documented) at patient's floor/unit and/or counseling patient: Plan of Care Discussed with: patient Internal Medicine: Result - Labs CBC & Chem 7: 03/18/19 01:06 03/18/19 05:05 Labs: Short CBC 03/18/19 Range/Units 01:06 WBC 12.2 H (4.3-11.1) K/mcL Hgb 12.1 (11.5-15.4) g/dL Hct 36.9 (35.3-44.9) % Plt Count 230 (140-400) K/mcL BMP 03/17/19 03/17/19 03/17/19 12:52 18:40 21:00 Sodium 127 L 124 L 122 L Potassium 4.1 4.5 4.7 Chloride 90 L 90 L 88 L Carbon Dioxide 31 H 26 27 BUN 25 H 26 H 27 H Creatinine 1.17 1.22 H 1.16 Glucose 105 151 H 108 H Calcium 8.7 8.5 L 8.6 03/18/19 03/18/19 01:06 05:05 Sodium 126 L 128 L Potassium 4.5 4.5 Chloride 89 L 91 L Carbon Dioxide 27 28 BUN 26 H 26 H Creatinine 1.06 1.03 Glucose 123 H 114 H Calcium 8.8 9.2 - Impressions Impressions Echocardiogram 03/17/19 13:54 Impressions: LVEF 60-65%. Normal LV chamber size, wall thickness and function. Mild left ventricular diastolic dysfunction. The right ventricle was not well visualized Moderately dilated left atrium. Bioprosthetic aortic valve appears well seated with normal function.Peak velocity is 2.6m/s; mean gradient 14mmHg; DVI 0.45 No evidence of pulmonary hypertension. Left Ventricular Wall Motion: Rest Echo Findings All wall segments showed normal motion. Findings: Study Quality * Technically adequate exam. ECG Findings * Normal sinus rhythm. Left Ventricle * LVEF 60-65%. * Normal LV chamber size, wall thickness and function. * Mild left ventricular diastolic dysfunction. Right Ventricle * The right ventricle was not well visualized Left Atrium * Moderately dilated left atrium. Right Atrium * Normal right atrial size. Interatrial Septum * No evidence of PFO by color Doppler. Aortic Valve * Bioprosthetic aortic valve appears well seated with normal function.Peak velocity is 2.6m/s; mean gradient 14mmHg; DVI 0.45 * Mitral Valve * Normal mitral valve structure. * No mitral regurgitation. * No mitral stenosis. Tricuspid Valve * Trace tricuspid regurgitation. * No tricuspid stenosis. * Normal tricuspid valve structure. * No evidence of pulmonary hypertension. Pulmonic Valve * No pulmonic regurgitation. Aorta * Normally sized aortic root. Pericardium * The pericardium appears normal. IVC * Normal IVC dimensions and inspiratory collapse. Pulmonary Artery * Normal visualized portions of the main pulmonary artery. Lumbar Spine MRI 03/17/19 16:54 IMPRESSION: Acute compression fracture at the superior endplate of L3 with abnormal bone marrow signal and 50% height loss. Abnormal bone marrow signal at the inferior endplate of L2, likely related to bone marrow edema and acute to subacute compression fracture without significant height loss. Abnormal bone marrow signal at the superior endplate of T11 with 25% height loss, likely related to subacute compression fracture. Chronic compression fracture at the inferior endplate of T12 with up to 70% height loss, mildly progressed since February 01, 2009. Abnormal bone marrow signal at the endplates of T10, likely related to degenerative endplate changes. Status post left hemilaminectomies at L3-4 and L4-5 and status post right hemilaminectomy at L5-S1. Degenerative disc disease, exacerbating congenitally narrow lumbar spinal canal, mildly progressed at T12-L1 and L2-3, improved at L3-4. Spinal canal narrowing, mild at L2-3 and L3-4. Foraminal narrowing, moderate to severe at right L3-4, moderate at left L3-4, [id number] at bilateral T10-11, mild at bilateral L1-2, bilateral L2-3 and right L5-S1, minimal at bilateral T12-L1 and left L4-5. The results were sent to radiology results communication. D/ / Homer Delaney MD / Homer Delaney MD Interpreting Provider: Homer Delaney MD Consult Discharge Plan - Plan Referrals: Oswaldo Al MD [Primary Care Provider] - (2) Falls Qualifiers: Encounter type: initial encounter Qualified Code(s): W19.XXXA - Unspecified fall, initial encounter (5) Osteoarthritis of spine Qualifiers: Spinal region: lumbar Spinal osteoarthritis complication: without myelopathy or radiculopathy Qualified Code(s): M47.816 - Spondylosis without myelopathy or radiculopathy, lumbar region (6) Compression fracture of L3 vertebra Qualifiers: Encounter type: initial encounter Qualified Code(s): S32.030A - Wedge compression fracture of third lumbar vertebra, initial encounter for closed fracture (7) CAD (coronary artery disease) Qualifiers: Coronary Disease-Associated Artery/Lesion type: [place] artery [place] vs. transplanted heart: hughes heart Associated angina: without angina Qualified Code(s): I25.10 - Atherosclerotic heart disease of [place] coronary artery without angina pectoris
--- NOTE | 2019-03-18 14:22 | Nephrology Progress Note ---
Date of Encounter: 03/18/19 Time of Encounter: 14:20 - Assessment and Plan (1) Hyponatremia Current Visit: Yes Status: Chronic Patient has had hyponatremia in the past, but not quite this low. Admits to drinking more fluid than usual at home. Hyponatremia likely related to increased PO consumption. Initial Na was 119, has corrected to 128, stable. Liberalize salt in diet. Uric acid and Serum osmo noted. Tsh and Cortisol normal. Urine Osmo 274, elevated slightly elevated. NS discontinued. (2) Falls Current Visit: Yes Status: Acute Hospital fall protocol per policy. Qualifiers: Encounter type: initial encounter Qualified Code(s): W19.XXXA - Unspecified fall, initial encounter (3) Weakness Current Visit: Yes Status: Acute Consider PT/OT consult. (4) Anemia Current Visit: No Status: Chronic Hgb is 11.1, stable. Qualifiers: Anemia type: unspecified type Qualified Code(s): D64.9 - Anemia, unspecified Subjective Principal diagnosis: s/p fall, hyponatremia Interval history: Pt seen and examined, is feeling much better with back brace. Denies chest pain or shortness of breath. Denies nausea, vomiting, diarrhea. Has been compliant with fluid restriction. Objective - Vital Signs Vital signs: Vital Signs Temp Pulse Resp BP Pulse Ox 03/18/19 07:54 98.1 F 75 16 143/74 99 03/18/19 06:15 157/73 03/18/19 04:54 97.7 F 70 18 159/111 97 03/18/19 04:47 96 03/17/19 21:18 97.9 F 77 15 163/84 96 Intake and Output 03/17/19 03/18/19 03/18/19 23:59 07:59 15:59 Intake Total 0 / 120 120 / 120 Output Total 0 / 3650 Balance 0 / -3530 120 / 120 Intake: Oral 0 / 120 120 / 120 Output: Urine 0 / 0 Other: Meal Breakfast Percent of Meal Consumed 100% # Voids 2 - General Appearance General appearance: Present: well-developed, well-nourished EENT: Present: ATNC, hearing intact, vision intact Neck: Present: supple Respiratory: Present: clear Cardiology: Present: no edema, normal S1, normal S2 Gastrointestinal: Present: normoactive bowel sounds, no tenderness, no guarding Integumentary: Present: no rash, warm and dry Neurologic: Present: alert and oriented x3 Musculoskeletal: Present: no erythema Psychiatric: Present: mood/affect appropriate, cooperative - Lab 03/18/19 01:06 03/18/19 05:05 Most recent lab results 03/18/19 05:05 Calcium 9.2 Consult Discharge Plan - Plan Referrals: Oswaldo Al MD [Primary Care Provider] -
[2019-03-18 15:12] LABS: Calcium 8.5 mg/dL (8.6-10.3); Potassium 4.7 mEq/L (3.5-5.1)
[2019-03-18] MEDS: Aspirin Enteric Coated 81 MG Tablet PO SCH (17:49)
[2019-03-19] MEDS: *HR* HYDROcodone/Acet 10/325 mg TABLET PO PRN ×2 (04:05→12:29)
[2019-03-19] MEDS: *HR* Heparin 5,000 UNIT/ML VIAL SQ SCH (05:54)
[2019-03-19 06:07] LABS: Hematocrit 32.6 % (35.3-44.9); Hemoglobin 10.8 g/dL (11.5-15.4); Mean Corpuscular HGB Conc 33.1 g/dL (31.6-35.5); Mean Corpuscular Hemoglobin 31.3 pg (28.0-33.3); Mean Corpuscular Volume 94.5 fL (83.0-100.0); Mean Platelet Volume 8.8 fL (9.4-12.4); Platelet Count 191 K/mcL (140-400); Red Blood Count 3.45 M/mcL (3.82-4.97); Red Cell Distribution Width 13.8 % (11.5-14.5)
[2019-03-19 06:33] LABS: BUN/Creatinine Ratio 27 (6-26); Blood Urea Nitrogen 29 mg/dL (8-23); Calcium 8.3 mg/dL (8.6-10.3); Carbon Dioxide 26 mEq/L (23-29); Chloride 93 mEq/L (98-107); Glucose 116 mg/dL (70-105); Osmolality,Calculated 277 (280-300); Potassium 4.9 mEq/L (3.5-5.1); Sodium 130 mEq/L (136-145); eGFR For African Americans > 60 (> 60); eGFR For Non-African Americans 51 (> 60)
[2019-03-19 06:40] VITALS: BP 158/69
[2019-03-19] MEDS: Cholecalciferol (D-3) 1,000 UNIT (25MCG) TABLET PO SCH (10:01)
[2019-03-19] MEDS: Vitamin E 200 UNIT (90MG) CAPSULE PO SCH (10:01)
[2019-03-19] MEDS: predniSONE 20 MG TABLET PO SCH (10:01)
[2019-03-19] MEDS: Isosorbide MONOnitrate (24 HR) 30 MG TAB.ER.24H PO SCH (10:01)
--- NOTE | 2019-03-19 11:55 | Discharge Summary ---
- NOTES TO OUTPATIENT PROVIDER Notes to Outpatient Provider: Patient was admitted for hyponatremia due to low salt intake. Her sodium went back to her baseline. She was also found to have acute compression fracture in L3 and she would benefit from following with spinal surgeon as outpatient. She had a brace that helps her symptoms. Date of Encounter: 03/19/19 Time of Encounter: 09:45 - Discharge Diagnosis (1) Hyponatremia Priority: Primary Status: Chronic (2) Falls Priority: Secondary Status: Resolved Qualifiers: Encounter type: initial encounter Qualified Code(s): W19.XXXA - Unspecified fall, initial encounter (3) Hyperglycemia Priority: Secondary Status: Resolved (4) DVT prophylaxis Priority: Secondary Status: Acute (5) Osteoarthritis of spine Priority: Secondary Status: Chronic Qualifiers: Spinal region: lumbar Spinal osteoarthritis complication: without myelopathy or radiculopathy Qualified Code(s): M47.816 - Spondylosis without myelopathy or radiculopathy, lumbar region (6) Compression fracture of L3 vertebra Priority: Secondary Status: Acute Qualifiers: Encounter type: initial encounter Qualified Code(s): S32.030A - Wedge compression fracture of third lumbar vertebra, initial encounter for closed fracture (7) CAD (coronary artery disease) Priority: Secondary Status: Chronic Qualifiers: Coronary Disease-Associated Artery/Lesion type: [place] artery [place] vs. transplanted heart: [place] heart Associated angina: without angina Qualified Code(s): I25.10 - Atherosclerotic heart disease of [place] coronary artery without angina pectoris (8) S/P TAVR (transcatheter aortic valve replacement) Priority: Secondary Status: Chronic Hospital course: Ms. Locke is a 73 year old female with history of OA, CAD status post PCI who was admitted to the hospital due to fall and was found to have hyponatremia. Nephrology service was consulted and her hyponatremia was related to decreased oral salt intake and increase water intake. She was found to have accurate L3 compression fracture and orthopedic spine surgery was consulted and patient was provided with a brace which gave immediate relief. Patient had PT/OT who recommended rehabilitation. Today, patient is clinically stable and hemodynamic stable. She will be discharged to rehabilitation for physical therapy. She was on steroids for her back for more than a month and I discussed with her to wean off steroids. Discharge discussed with: patient - Time Spent with Patient Total time spent providing and/or coordinating discharge services: 45 minutes - Discharge Medications Prescriptions: Continued Zolpidem [Ambien] 10 mg PO HS PRN PRN Reason: Insomnia Lansoprazole [Prevacid] 30 mg PO DAILY Nitroglycerin 0.4 mg SL AD PRN PRN Reason: Chest Pain Aspirin [Lo-Dose Aspirin EC] 81 mg PO QPM Calcium Carbonate/Vitamin D3 [Calcium 600 + Vit D Tablet] 2 tab PO DAILY Vitamin E Acetate [Vitamin E] 400 unit PO DAILY Multivit-Min/Iron/Folic/Lutein [Centrum Silver Women Tablet] 2 tab PO DAILY Fish Oil/Borage/Flax/Om3,6,9#1 [[place] 3-6-9 1,200 mg Softgel] 1,200 mg PO BID Polyethylene Glycol 3350 [MiraLAX] 17 gm PO 3XW Sertraline [Zoloft] 50 mg PO DAILY Isosorbide MONOnitrate (24 HR) [Imdur] 30 mg PO QAM Lisinopril [Zestril] 10 mg PO QAM Ferrous Sulfate [Iron] 325 mg PO BID Cyclobenzaprine [Flexeril] 10 mg PO 2-3XD Metoprolol [Lopressor] 25 mg PO QAM Clopidogrel [Plavix] 75 mg PO DAILY Atorvastatin [Lipitor] 40 mg PO HS Discontinued predniSONE [PredniSONE] 20 mg PO TID HYDROcodone/Acet 10/325 mg [[place] 10-325 mg] 1 tab PO Q8HR PRN PRN Reason: Pain Home Medications: Lansoprazole [Prevacid] 30 mg PO DAILY 03/22/15 [History] Zolpidem [Ambien] 10 mg PO HS PRN 03/22/15 [History] Nitroglycerin 0.4 mg SL AD PRN 03/23/15 [History] Aspirin [Lo-Dose Aspirin EC] 81 mg PO QPM 09/30/16 [History] Calcium Carbonate/Vitamin D3 [Calcium 600 + Vit D Tablet] 2 tab PO DAILY 09/30/16 [History] Multivit-Min/Iron/Folic/Lutein [Centrum Silver Women Tablet] 2 tab PO DAILY 09/30/16 [History] Vitamin E Acetate [Vitamin E] 400 unit PO DAILY 09/30/16 [History] Fish Oil/Borage/Flax/Om3,6,9#1 [[place] 3-6-9 1,200 mg Softgel] 1,200 mg PO BID 11/04/18 [History] Polyethylene Glycol 3350 [MiraLAX] 17 gm PO 3XW 11/04/18 [History] Sertraline [Zoloft] 50 mg PO DAILY 11/04/18 [History] Atorvastatin [Lipitor] 40 mg PO HS 03/16/19 [History] Clopidogrel [Plavix] 75 mg PO DAILY 03/16/19 [History] Cyclobenzaprine [Flexeril] 10 mg PO 2-3XD 03/16/19 [History] Ferrous Sulfate [Iron] 325 mg PO BID 03/16/19 [History] Isosorbide MONOnitrate (24 HR) [Imdur] 30 mg PO QAM 03/16/19 [History] Lisinopril [Zestril] 10 mg PO QAM 03/16/19 [History] Metoprolol [Lopressor] 25 mg PO QAM 03/16/19 [History] Allergies/Adverse Reactions: Allergy/AdvReac Type Severity Reaction Status Date / Time oxycodone [Oxycodone] Allergy Vomiting Verified 03/16/19 20:19 Penicillins [PCN] Allergy Rash Verified 03/16/19 20:19 Date of admission: 03/16/19 22:58 Primary care physician: Oswaldo Al MD Consults: 03/16/19 22:43 Consult to Nephrology [CONS] Stat Consulting Provider: [facility] Manuela/LUIS/NAVDEEP/LALITHA Reason for Consult: hyponatremia Time Notified: 22:43 Call Completed: Yes 03/17/19 06:55 Consult to Occupational Therapy [CONS] Routine Comment: Evaluate, develop and implement POC Reason for Consult: Falls at home. Does patient have active BEDREST order?: No Is patient medically & hemodynamically stable?: Yes Patient assessed for mobility or mobilized this visit?: No Consult to Physical Therapy [CONS] Routine Comment: Evaluate, develop and implement POC Reason for Consult: Frequent falls at home Does patient have active BEDREST order?: No Is patient medically & hemodynamically stable?: Yes Patient assessed for mobility or mobilized this visit?: No 03/17/19 16:16 Consult to Basket Hand Braider [CONS] Routine Reason for SW Consult: Possible rehab at discharge 03/17/19 17:32 Consult to Orthopedic Surgery [CONS] Routine Consulting Provider: [facility] Reason for Consult: Acute compression fracture at the superior endplate of L3 with abnormal bone marrow signal and 50% height loss, Spinal canal narrowing, mild at L2-3 and L3-4. Call Completed: Yes - Constitutional Vitals: Temp Pulse Resp BP Pulse Ox 98.0 F 75 14 158/69 99 03/19/19 06:38 03/19/19 06:38 03/19/19 06:38 03/19/19 06:38 03/19/19 06:38 General appearance: Present: cooperative, A&O X 3, pleasant, no acute distress, answers questions appropriately Exam: General: Patient is alert, oriented 3. Head: Atraumatic, normal inspection, normocephalic. Eye: EOMI, PERRLA, ENT: Mucous membranes moist. No odontogenic infection noted. Neck: Normal inspection, no meningismus. Respiratory: Bibasilar crackles. Cardiovascular: Regular rate and regular rhythm, low pitched murmur in the right sternal border GI: Soft, nondistended, normal bowel sounds. Extremities:No joint swelling, pedal edema, or tenderness noted. Neurological: Alert, oriented 3, no focal deficits. Psychiatric: normal affect, normal mood. Skin> hematoma over the left hip. - - Patient Status Disposition: Transfer SNF Functional capacity at discharge: uses cane/walker Overall status at discharge: patient is back to baseline - Discharge Instructions Follow Up With: Oswaldo Al MD [Primary Care Provider] - Slim Lee Jr, MD [Partnered Physician] - - Diet and Activity Activity: as per physical therapy Diet: diabetic diet
--- NOTE | 2019-03-19 12:01 | Physician Discharge Referral ---
ExtendedCare Referral Info Transfer To: SNF Provider in Charge after Transfer: PCP Institutional Level of Care: Skilled - Diagnosis (1) Hyponatremia Priority: Primary Status: Chronic (2) Falls Priority: Secondary Status: Resolved (3) Hyperglycemia Priority: Secondary Status: Resolved (4) DVT prophylaxis Priority: Secondary Status: Acute (5) Osteoarthritis of spine Priority: Secondary Status: Chronic (6) Compression fracture of L3 vertebra Priority: Secondary Status: Acute (7) CAD (coronary artery disease) Priority: Secondary Status: Chronic (8) S/P TAVR (transcatheter aortic valve replacement) Priority: Secondary Status: Chronic - Transfer Medications Prescriptions: Hydrocodone/Acetaminophen [[place] 10-325 Tablet] 1 each PO Q8H 7 Days #21 tablet Prescription Printed predniSONE [Prednisone] 10 mg PO DAILY #50 tab.ds.pk Prescription Printed Home Medications: Lansoprazole [Prevacid] 30 mg PO DAILY 03/22/15 [History] Zolpidem [Ambien] 10 mg PO HS PRN 03/22/15 [History] Nitroglycerin 0.4 mg SL AD PRN 03/23/15 [History] Aspirin [Lo-Dose Aspirin EC] 81 mg PO QPM 09/30/16 [History] Calcium Carbonate/Vitamin D3 [Calcium 600 + Vit D Tablet] 2 tab PO DAILY 09/30/16 [History] Multivit-Min/Iron/Folic/Lutein [Centrum Silver Women Tablet] 2 tab PO DAILY 09/30/16 [History] Vitamin E Acetate [Vitamin E] 400 unit PO DAILY 09/30/16 [History] Fish Oil/Borage/Flax/Om3,6,9#1 [[place] 3-6-9 1,200 mg Softgel] 1,200 mg PO BID 11/04/18 [History] Polyethylene Glycol 3350 [MiraLAX] 17 gm PO 3XW 11/04/18 [History] Sertraline [Zoloft] 50 mg PO DAILY 11/04/18 [History] Atorvastatin [Lipitor] 40 mg PO HS 03/16/19 [History] Clopidogrel [Plavix] 75 mg PO DAILY 03/16/19 [History] Cyclobenzaprine [Flexeril] 10 mg PO 2-3XD 03/16/19 [History] Ferrous Sulfate [Iron] 325 mg PO BID 03/16/19 [History] Isosorbide MONOnitrate (24 HR) [Imdur] 30 mg PO QAM 03/16/19 [History] Lisinopril [Zestril] 10 mg PO QAM 03/16/19 [History] Metoprolol [Lopressor] 25 mg PO QAM 03/16/19 [History] Hydrocodone/Acetaminophen [[place] 10-325 Tablet] 1 each PO Q8H 7 Days #21 tablet 03/19/19 [Rx] predniSONE [Prednisone] 10 mg PO DAILY #50 tab.ds.pk 03/19/19 [Rx] Allergies/Adverse Reactions: Allergy/AdvReac Type Severity Reaction Status Date / Time oxycodone [Oxycodone] Allergy Vomiting Verified 03/16/19 20:19 Penicillins [PCN] Allergy Rash Verified 03/16/19 20:19 - Respiratory Orders Smoking Cessation: Smoking cessation has been advised. For more information, call the [place] Tobacco Quit Line at 1-680-OKBH-NOW. - Advance Directives Code Status: Full Code - Mobility Orders Ambulate - Rehabiliation Orders Rehab Potential: Good Rehab Orders: Evaluation for Physical Therapy, Evaluation for Occupational Therapy - Diet Orders Cardiac CERTIFICATION: I certify that the transfer of the above named patient to an Extended Care Facility is necessary for the continuing treatment of the diagnosis listed. The above information is true and accurate reflection of patient's current condition. Confidential - Redisclosure prohibited without a patient's written consent.
--- NOTE | 2019-03-19 15:40 | Nephrology Progress Note ---
Date of Encounter: 03/19/19 Time of Encounter: 12:15 - Assessment and Plan (1) Hyponatremia Current Visit: Yes Status: Chronic Patient has had hyponatremia in the past, but not quite this low. Admits to drinking more fluid than usual at home. Hyponatremia likely related to increased PO consumption. Initial Na was 119, has corrected to 130, stable. Liberalize salt in diet. Uric acid and Serum osmo noted. Tsh and Cortisol normal. Urine Osmo 274, elevated slightly elevated. NS discontinued. Will sign off, f/u with PCP in 7 days. (2) Falls Current Visit: Yes Status: Resolved Hospital fall protocol per policy. Qualifiers: Encounter type: initial encounter Qualified Code(s): W19.XXXA - Unspecified fall, initial encounter (3) Weakness Current Visit: Yes Status: Acute (4) Anemia Current Visit: No Status: Chronic Hgb is 11.1, stable. Qualifiers: Anemia type: unspecified type Qualified Code(s): D64.9 - Anemia, uns pecified Subjective Principal diagnosis: s/p fall, hyponatremia Interval history: Pt seen and examined, is feeling much better with back brace. Denies chest pain or shortness of breath. Denies nausea, vomiting, diarrhea. Has been compliant with fluid restriction. Objective - Vital Signs Vital signs: Vital Signs Temp Pulse Resp BP Pulse Ox 03/19/19 06:38 98.0 F 75 14 158/69 99 03/19/19 04:34 98.0 F 75 15 159/69 99 03/19/19 00:35 98.0 F 91 18 154/81 95 03/18/19 21:21 98.1 F 81 17 154/72 98 03/18/19 17:03 71 16 155/76 99 Intake and Output 03/18/19 03/19/19 03/19/19 23:59 07:59 15:59 Intake Total 240 / 360 0 / 360 360 / 360 Output Total 0 / 0 0 / 0 Balance 240 / 360 0 / 360 360 / 360 Intake: Oral 240 / 360 0 / 360 360 / 360 Output: Urine 0 / 0 0 / 0 Other: Meal Lunch Percent of Meal Consumed 100% # Voids 1 Weight 87.4 kg Patient Weight 03/19/19 23:59 Weight 87.4 kg - General Appearance General appearance: Present: well-developed, well-nourished EENT: Present: ATNC, hearing intact, vision intact Neck: Present: supple Respiratory: Present: clear Cardiology: Present: no edema, normal S1, normal S2 Gastrointestinal: Present: normoactive bowel sounds, no tenderness, no guarding Integumentary: Present: no rash, warm and dry Neurologic: Present: alert and oriented x3 Musculoskeletal: Present: no deformities, no erythema Psychiatric: Present: mood/affect appropriate, cooperative - Lab 03/19/19 05:34 03/19/19 05:34 Most recent lab results 03/19/19 05:34 Calcium 8.3 L Consult Discharge Plan - Plan Instructions: Hydrocodone/Acetaminophen (By mouth), Prednisone (By mouth) Referrals: Slim Lee Jr, MD [Partnered Physician] - 03/26/19 11:00 am Oswaldo Al MD [Primary Care Provider] - 03/25/19 1:30 pm Prescriptions: Hydrocodone/Acetaminophen [[place] 10-325 Tablet] 1 each PO Q8H 7 Days #21 tablet Prescription Printed predniSONE [Prednisone] 10 mg PO DAILY #50 tab.ds.pk Prescription Printed
== END 2019-03-19 16:40 ==
LOC: 2NENU 20:16 → EMEROOARM 20:16 → SUATTDRO 22:58 → 2NENU 03-17 00:20
PROVIDERS: ADMIT Internal Medicine; ATTEND Internal Medicine

== ENCOUNTER 2019-04-17 00:58 | Inpatient (IN) ==
[2019-04-17 01:34] LABS: Basophils # 0.1 K/mcL (0.0-0.2); Basophils % 0.4 %; Eosinophils # 0.1 K/mcL (0.0-0.6); Eosinophils % 0.8 %; Hematocrit 27.5 % (35.3-44.9); Hemoglobin 9.3 g/dL (11.5-15.4); Immature Granulocytes % 0.5 % (0-4); Immature Platelets 1.7 % (1.1-6.1); Lymphocytes # 1.2 K/mcL (0.6-4.6); Lymphocytes % 8.9 %; Mean Corpuscular HGB Conc 33.8 g/dL (31.6-35.5); Mean Corpuscular Hemoglobin 31.2 pg (28.0-33.3); Mean Corpuscular Volume 92.3 fL (83.0-100.0); Mean Platelet Volume 8.9 fL (9.4-12.4); Monocytes # 0.8 K/mcL (0.0-1.3); Monocytes % 5.7 %; Neutrophils # 11.4 K/mcL (1.6-8.9); Platelet Count 140 K/mcL (140-400); Red Blood Count 2.98 M/mcL (3.82-4.97); Red Cell Distribution Width 14.2 % (11.5-14.5); Segmented Neutrophils % 83.7 %; White Blood Count 13.7 K/mcL (4.3-11.1)
[2019-04-17 01:49] LABS: BUN/Creatinine Ratio 22 (6-26); Blood Urea Nitrogen 25 mg/dL (8-23); Calcium 8.7 mg/dL (8.6-10.3); Carbon Dioxide 24 mEq/L (23-29); Chloride 97 mEq/L (98-107); Glucose 133 mg/dL (70-105); Osmolality,Calculated 276 (280-300); Potassium 3.9 mEq/L (3.5-5.1); Sodium 130 mEq/L (136-145); eGFR For African Americans 57 (> 60); eGFR For Non-African Americans 47 (> 60)
[2019-04-17 01:57] LABS: Troponin I < 0.03 ng/mL (< 0.04)
[2019-04-17] MEDS ORDERED: Furosemide 40 MG/4 ML VIAL IVP ONE (01:58)
[2019-04-17 02:16] LABS: Bilirubin,Urine Negative (Negative); Blood,Urine Negative (Negative); Clarity,Urine Clear (Clear); Color,Urine Yellow (Yellow); Glucose,Urine (UA) Normal (Normal); Ketones,Urine Negative (Negative); Leukocyte Esterase,Urine Moderate (Negative); Nitrite,Urine Negative (Negative); Protein,Urine Negative (Neg-Trace); Specific Gravity,Urine 1.017 (1.010-1.025); Urobilinogen,Urine Normal (Normal)
[2019-04-17 02:18] LABS: Bacteria,Urine None Seen per hpf (None-Few); Hyaline Casts,Urine None Seen per lpf (None-Few); Squamous Epithelial Cell,Urine Moderate per lpf (None-Few); WBC,Urine 15-30 per hpf (0-3)
[2019-04-17] MEDS ORDERED: Naloxone 0.4 MG/ML INJ IVP PRN ×2 (06:56→17:34)
[2019-04-17] MEDS: cefTRIAXone 1,000 MG in Water for inj. (sterile) 10 ML IVP SCH (08:40)
[2019-04-17] MEDS: Aspirin 81 MG TAB.CHEW PO SCH (13:53)
[2019-04-17] MEDS: Metoprolol XL (24 HR) Succ 25 MG TAB.ER.24H PO SCH (13:53)
[2019-04-17] MEDS ORDERED: Acetaminophen 325 MG TABLET PO PRN (17:34)
[2019-04-17] MEDS: *HR* HYDROcodone/Acet 5/325 mg TABLET PO PRN (18:45)
[2019-04-17] MEDS: OMEGA PO SCH (21:42)
[2019-04-18] MEDS: *HR* HYDROcodone/Acet 5/325 mg TABLET PO PRN ×3 (01:35→21:57)
[2019-04-18 02:24] LABS: Basophils % 0.2 %; Eosinophils # 0.3 K/mcL (0.0-0.6); Eosinophils % 2.1 %; Hemoglobin 8.9 g/dL (11.5-15.4); Immature Granulocytes % 0.9 % (0-4); Lymphocytes # 2.1 K/mcL (0.6-4.6); Mean Corpuscular HGB Conc 34.2 g/dL (31.6-35.5); Mean Corpuscular Hemoglobin 31.6 pg (28.0-33.3); Mean Corpuscular Volume 92.2 fL (83.0-100.0); Mean Platelet Volume 9.3 fL (9.4-12.4); Monocytes # 0.9 K/mcL (0.0-1.3); Monocytes % 7.5 %; Neutrophils # 8.7 K/mcL (1.6-8.9); Platelet Count 146 K/mcL (140-400); Red Blood Count 2.82 M/mcL (3.82-4.97); Red Cell Distribution Width 14.1 % (11.5-14.5); Segmented Neutrophils % 72.3 %; White Blood Count 12.1 K/mcL (4.3-11.1)
[2019-04-18 02:32] LABS: INR 1.3; Prothrombin Time 14.7 Seconds (9.4-12.1)
[2019-04-18 02:44] LABS: Calcium 8.4 mg/dL (8.6-10.3); Potassium 3.4 mEq/L (3.5-5.1)
[2019-04-18] MEDS: Multivit/Ca/Min/Fe/FA 1 TAB TABLET PO SCH (09:17)
[2019-04-18] MEDS: Aspirin 81 MG TAB.CHEW PO SCH (09:17)
[2019-04-18] MEDS: Metoprolol XL (24 HR) Succ 25 MG TAB.ER.24H PO SCH (09:17)
[2019-04-18] MEDS: OMEGA PO SCH ×2 (09:18→21:56)
[2019-04-18] MEDS: Vitamin E 200 UNIT (90MG) CAPSULE PO SCH (09:19)
[2019-04-18] MEDS: cefTRIAXone 1,000 MG in Water for inj. (sterile) 10 ML IVP SCH (09:19)
[2019-04-18] MEDS: Isosorbide MONOnitrate (24 HR) 30 MG TAB.ER.24H PO SCH (09:19)
[2019-04-18] MEDS: traMADol 50 MG TABLET PO PRN (17:08)
[2019-04-19 05:30] LABS: Basophils % 0.3 %; Eosinophils # 0.3 K/mcL (0.0-0.6); Hematocrit 26.7 % (35.3-44.9); Hemoglobin 8.7 g/dL (11.5-15.4); Lymphocytes # 2.1 K/mcL (0.6-4.6); Lymphocytes % 14.3 %; Mean Corpuscular HGB Conc 32.6 g/dL (31.6-35.5); Mean Corpuscular Hemoglobin 31.1 pg (28.0-33.3); Mean Corpuscular Volume 95.4 fL (83.0-100.0); Mean Platelet Volume 8.7 fL (9.4-12.4); Monocytes % 6.6 %; Neutrophils # 11.1 K/mcL (1.6-8.9); Platelet Count 138 K/mcL (140-400); Segmented Neutrophils % 75.8 %; White Blood Count 14.7 K/mcL (4.3-11.1)
[2019-04-19 05:50] LABS: Calcium 8.3 mg/dL (8.6-10.3); Potassium 4.1 mEq/L (3.5-5.1)
[2019-04-19] MEDS: Multivit/Ca/Min/Fe/FA 1 TAB TABLET PO SCH (08:37)
[2019-04-19] MEDS: Vitamin E 200 UNIT (90MG) CAPSULE PO SCH (08:37)
[2019-04-19] MEDS: Isosorbide MONOnitrate (24 HR) 30 MG TAB.ER.24H PO SCH (08:39)
[2019-04-19] MEDS: Metoprolol XL (24 HR) Succ 25 MG TAB.ER.24H PO SCH (08:39)
[2019-04-19] MEDS: Aspirin 81 MG TAB.CHEW PO SCH (08:39)
[2019-04-19] MEDS: OMEGA PO SCH ×2 (08:40→21:33)
[2019-04-19] MEDS ORDERED: Furosemide 40 MG/4 ML VIAL IVP ONE (08:49)
[2019-04-19] MEDS ORDERED: Ipratropium/Albuterol Neb 3 ML IH PRN (09:29)
[2019-04-19] MEDS: cefTRIAXone 1,000 MG in Water for inj. (sterile) 10 ML IVP SCH (12:13)
[2019-04-19] MEDS ORDERED: NON-FORMULARY MEDICATION 1 EACH EACH (Ipratropium/Albuterol Sulfate [Combivent Respimat 20 IH SCH (13:00)
[2019-04-19] MEDS: *HR* HYDROcodone/Acet 5/325 mg TABLET PO PRN (17:12)
[2019-04-19] MEDS: traMADol 50 MG TABLET PO PRN (21:32)
[2019-04-20 04:11] LABS: Basophils % 0.2 %; Eosinophils # 0.5 K/mcL (0.0-0.6); Eosinophils % 3.1 %; Hematocrit 24.3 % (35.3-44.9); Hemoglobin 8.5 g/dL (11.5-15.4); Immature Granulocytes % 1.3 % (0-4); Mean Corpuscular Volume 91.4 fL (83.0-100.0); Mean Platelet Volume 8.9 fL (9.4-12.4); Monocytes % 6.2 %; Neutrophils # 12.7 K/mcL (1.6-8.9); Platelet Count 178 K/mcL (140-400); Red Blood Count 2.66 M/mcL (3.82-4.97); Red Cell Distribution Width 14.1 % (11.5-14.5); Segmented Neutrophils % 77.2 %; White Blood Count 16.5 K/mcL (4.3-11.1)
[2019-04-20 04:30] LABS: Calcium 8.5 mg/dL (8.6-10.3); Potassium 3.7 mEq/L (3.5-5.1)
[2019-04-20] MEDS: Vitamin E 200 UNIT (90MG) CAPSULE PO SCH (09:54)
[2019-04-20] MEDS: Aspirin 81 MG TAB.CHEW PO SCH (09:54)
[2019-04-20] MEDS: cefTRIAXone 1,000 MG in Water for inj. (sterile) 10 ML IVP SCH (09:54)
[2019-04-20] MEDS: Metoprolol XL (24 HR) Succ 25 MG TAB.ER.24H PO SCH (09:56)
[2019-04-20] MEDS: Multivit/Ca/Min/Fe/FA 1 TAB TABLET PO SCH (09:56)
[2019-04-20] MEDS: Isosorbide MONOnitrate (24 HR) 30 MG TAB.ER.24H PO SCH (09:56)
[2019-04-20] MEDS: OMEGA PO SCH ×2 (11:58→21:58)
[2019-04-20] MEDS: *HR* HYDROcodone/Acet 5/325 mg TABLET PO PRN (21:58)
[2019-04-20] MEDS: Levalbuterol Neb 1.25 MG/3 ML IH SCH (23:05)
[2019-04-21 03:52] LABS: Basophils % 0.2 %; Eosinophils # 0.5 K/mcL (0.0-0.6); Eosinophils % 2.6 %; Hematocrit 22.8 % (35.3-44.9); Hemoglobin 7.5 g/dL (11.5-15.4); Immature Granulocytes % 1.3 % (0-4); Lymphocytes # 1.9 K/mcL (0.6-4.6); Lymphocytes % 10.9 %; Mean Corpuscular HGB Conc 32.9 g/dL (31.6-35.5); Mean Corpuscular Hemoglobin 31.4 pg (28.0-33.3); Mean Corpuscular Volume 95.4 fL (83.0-100.0); Monocytes # 1.2 K/mcL (0.0-1.3); Monocytes % 6.7 %; Neutrophils # 13.4 K/mcL (1.6-8.9); Platelet Count 176 K/mcL (140-400); Red Blood Count 2.39 M/mcL (3.82-4.97); Red Cell Distribution Width 14.2 % (11.5-14.5); Segmented Neutrophils % 78.3 %; White Blood Count 17.1 K/mcL (4.3-11.1)
[2019-04-21] MEDS: Levalbuterol Neb 1.25 MG/3 ML IH SCH ×5 (03:57→19:54)
[2019-04-21 04:11] LABS: Calcium 8.1 mg/dL (8.6-10.3); Potassium 3.9 mEq/L (3.5-5.1)
[2019-04-21] MEDS: Vitamin E 200 UNIT (90MG) CAPSULE PO SCH (08:18)
[2019-04-21] MEDS: Isosorbide MONOnitrate (24 HR) 30 MG TAB.ER.24H PO SCH (08:19)
[2019-04-21] MEDS: cefTRIAXone 1,000 MG in Water for inj. (sterile) 10 ML IVP SCH (08:19)
[2019-04-21] MEDS: OMEGA PO SCH ×2 (08:19→20:25)
[2019-04-21] MEDS: Aspirin 81 MG TAB.CHEW PO SCH (08:19)
[2019-04-21] MEDS: Multivit/Ca/Min/Fe/FA 1 TAB TABLET PO SCH (08:19)
[2019-04-21] MEDS: *HR* HYDROcodone/Acet 5/325 mg TABLET PO PRN ×2 (08:28→20:21)
[2019-04-21 11:06] LABS: Adenovirus Not Detected (Not Detect); Bordetella Pertussis Not Detected (Not Detect); Chlamydophila pneumoniae Not Detected (Not Detect); Coronavirus 229E Not Detected (Not Detect); Coronavirus HKU1 Not Detected (Not Detect); Coronavirus NL63 Not Detected (Not Detect); Coronavirus OC43 Not Detected (Not Detect); Human Metapneumovirus Not Detected (Not Detect); Human Rhinovirus/Enterovirus Not Detected (Not Detect); Influenza A Subtype 2009 H1 Not Detected (Not Detect); Influenza A Untypeable Not Detected (Not Detect); Influenza B Not Detected (Not Detect); Mycoplasma pneumoniae Not Detected (Not Detect); Parainfluenza Virus 1 Not Detected (Not Detect); Parainfluenza Virus 2 Not Detected (Not Detect); Parainfluenza Virus 3 Not Detected (Not Detect); Parainfluenza Virus 4 Not Detected (Not Detect); Respiratory Syncytial Virus Not Detected (Not Detect)
[2019-04-21] MEDS ORDERED: Sodium Ferric Gluconat/Sucrose 125 MG in 0.9 % Sodium Chloride 100 ML IVPB SCH (11:45)
[2019-04-21] MEDS: Pantoprazole 40 MG VIAL IVP SCH (13:51)
[2019-04-21 16:41] LABS: Hematocrit 24.6 % (35.3-44.9); Hemoglobin 8.3 g/dL (11.5-15.4)
[2019-04-21 23:28] LABS: ABG Base Excess 0 mEq/L (-2 to 3); ABG HCO3 26 mEq/L (21-27); ABG Oxygen Saturation 97 % (95-98); ABG PCO2 49 mmHg (35-45); ABG PH 7.34 pH Units (7.32-7.45); ABG PO2 97 mmHg (85-104); ABG TCO2 28 mEq/L (20-26); Blood Gas Modality ST; Blood Gas Pressure Support 4 cm H2O
[2019-04-22] MEDS: Levalbuterol Neb 1.25 MG/3 ML IH SCH ×7 (00:06→23:41)
[2019-04-22] MEDS: *HR* Heparin 5,000 UNIT/ML VIAL SQ SCH ×3 (00:24→18:20)
[2019-04-22 04:28] LABS: Basophils # 0.1 K/mcL (0.0-0.2); Basophils % 0.3 %; Eosinophils # 0.3 K/mcL (0.0-0.6); Eosinophils % 1.8 %; Hematocrit 24.2 % (35.3-44.9); Hemoglobin 8.3 g/dL (11.5-15.4); Immature Granulocytes % 2.3 % (0-4); Lymphocytes # 1.5 K/mcL (0.6-4.6); Lymphocytes % 7.6 %; Mean Corpuscular HGB Conc 34.3 g/dL (31.6-35.5); Mean Corpuscular Hemoglobin 31.4 pg (28.0-33.3); Mean Corpuscular Volume 91.7 fL (83.0-100.0); Mean Platelet Volume 9.1 fL (9.4-12.4); Monocytes # 1.2 K/mcL (0.0-1.3); Monocytes % 6.2 %; Neutrophils # 15.6 K/mcL (1.6-8.9); Platelet Count 209 K/mcL (140-400); Red Blood Count 2.64 M/mcL (3.82-4.97); Red Cell Distribution Width 14.2 % (11.5-14.5); Segmented Neutrophils % 81.8 %
[2019-04-22 04:36] LABS: INR 1.3; Prothrombin Time 15.2 Seconds (9.4-12.1)
[2019-04-22 04:47] LABS: Calcium 8.3 mg/dL (8.6-10.3); Potassium 4.1 mEq/L (3.5-5.1)
[2019-04-22] MEDS ORDERED: *HR* Propofol 200 MG/20 ML VIAL IVP ONE (14:11)
[2019-04-22] MEDS ORDERED: *HR* FentaNYL (PF) 100 MCG/2 ML VIAL ONE ×2 (14:11→15:22)
[2019-04-22] MEDS ORDERED: cefTRIAXone 1,000 MG in Water for inj. (sterile) 10 ML IVP ONE ×2 (14:41→17:14)
[2019-04-22] MEDS ORDERED: Dexamethasone 4 MG/ML VIAL ONE (14:53)
[2019-04-22] MEDS ORDERED: Ondansetron 4 MG/2 ML VIAL ONE (14:53)
[2019-04-22] MEDS ORDERED: Lidocaine -MPF 2% 2 ML VIAL ONE (14:53)
[2019-04-22] MEDS ORDERED: *HR* Succinylcholine 200 MG/10 ML VIAL IVP ONE (14:53)
[2019-04-22] MEDS ORDERED: MethylPREDNISolone 40 MG/ML VIAL ONE (15:06)
[2019-04-22] MEDS ORDERED: Propofol 500 MG/50 ML INFUS..BTL ONE (15:24)
[2019-04-22] MEDS ORDERED: FentaNYL (PF) 1,000 MCG in 0.9 % Sodium Chloride 80 ML IVC SCH (16:45)
[2019-04-22] MEDS ORDERED: Naloxone 0.4 MG/ML INJ IVP PRN (17:14)
[2019-04-22] MEDS ORDERED: *HR* HYDROcodone/Acet 5/325 mg TABLET PO PRN (17:14)
[2019-04-22] MEDS ORDERED: traMADol 50 MG TABLET PO PRN (17:14)
[2019-04-22] MEDS ORDERED: Acetaminophen 325 MG TABLET PO PRN (17:14)
[2019-04-22] MEDS ORDERED: *HR* Heparin 5,000 UNIT/ML VIAL SQ SCH (18:02)
[2019-04-22] MEDS: FentaNYL (PF) 1,000 MCG in 0.9 % Sodium Chloride 80 ML IVC SCH (18:16)
[2019-04-22] MEDS: methylPREDNISolone 125 MG/2 ML VIAL IVP SCH (18:20)
[2019-04-22] MEDS ORDERED: Artificial Tears SOLN 15 ML BOTTLE BOTH EYES PRN (19:04)
[2019-04-22] MEDS: Chlorhexidine Rinse 15 ML MOUTHWASH MM SCH (19:55)
[2019-04-22] MEDS: Artificial Tears SOLN 15 ML BOTTLE BOTH EYES SCH (19:55)
[2019-04-22] MEDS: OMEGA PO SCH ×2 (19:56→20:22)
[2019-04-22] MEDS: Isosorbide MONOnitrate (24 HR) 30 MG TAB.ER.24H PO SCH (20:21)
[2019-04-22] MEDS: Vitamin E 200 UNIT (90MG) CAPSULE PO SCH (20:21)
[2019-04-22] MEDS: Multivit/Ca/Min/Fe/FA 1 TAB TABLET PO SCH (20:21)
[2019-04-22] MEDS: Pantoprazole 40 MG VIAL IVP SCH (20:21)
[2019-04-22] MEDS: Aspirin 81 MG TAB.CHEW PO SCH (20:22)
[2019-04-22 20:23] LABS: ABG Base Excess 3 mEq/L (-2 to 3); ABG HCO3 29 mEq/L (21-27); ABG Oxygen Saturation 93 % (95-98); ABG PCO2 57 mmHg (35-45); ABG PH 7.32 pH Units (7.32-7.45); ABG PO2 75 mmHg (85-104); ABG TCO2 31 mEq/L (20-26); Blood Gas Modality ASSIST CONTROL; Blood Gas VT 520 cc
[2019-04-23] MEDS: Artificial Tears SOLN 15 ML BOTTLE BOTH EYES SCH ×7 (00:04→23:08)
[2019-04-23] MEDS: methylPREDNISolone 125 MG/2 ML VIAL IVP SCH ×5 (00:04→23:08)
[2019-04-23] MEDS: Levalbuterol Neb 1.25 MG/3 ML IH SCH ×6 (03:42→23:43)
[2019-04-23 03:48] LABS: Basophils % 0.1 %; Hematocrit 26.5 % (35.3-44.9); Hemoglobin 8.5 g/dL (11.5-15.4); Immature Granulocytes % 3.1 % (0-4); Lymphocytes # 0.9 K/mcL (0.6-4.6); Lymphocytes % 3.7 %; Mean Corpuscular HGB Conc 32.1 g/dL (31.6-35.5); Mean Corpuscular Volume 96.7 fL (83.0-100.0); Mean Platelet Volume 9.4 fL (9.4-12.4); Monocytes # 0.7 K/mcL (0.0-1.3); Monocytes % 2.9 %; Neutrophils # 21.8 K/mcL (1.6-8.9); Platelet Count 229 K/mcL (140-400); Red Blood Count 2.74 M/mcL (3.82-4.97); Red Cell Distribution Width 14.1 % (11.5-14.5); Segmented Neutrophils % 90.2 %; White Blood Count 24.2 K/mcL (4.3-11.1)
[2019-04-23 04:02] LABS: BUN/Creatinine Ratio 30 (6-26); Blood Urea Nitrogen 31 mg/dL (8-23); Calcium 8.8 mg/dL (8.6-10.3); Carbon Dioxide 28 mEq/L (23-29); Chloride 99 mEq/L (98-107); Glucose 143 mg/dL (70-105); Magnesium 2.2 mg/dL (1.6-2.6); Osmolality,Calculated 289 (280-300); Potassium 3.9 mEq/L (3.5-5.1); Sodium 135 mEq/L (136-145); eGFR For African Americans > 60 (> 60); eGFR For Non-African Americans 53 (> 60)
[2019-04-23 04:16] LABS: Platelet Estimate Normal (Normal); Polychromasia 1+ (Not Present)
[2019-04-23] MEDS: FentaNYL (PF) 1,000 MCG in 0.9 % Sodium Chloride 80 ML IVC SCH ×2 (04:36→17:44)
[2019-04-23 04:54] LABS: ABG Base Excess 4 mEq/L (-2 to 3); ABG HCO3 31 mEq/L (21-27); ABG Oxygen Saturation 86 % (95-98); ABG PCO2 54 mmHg (35-45); ABG PH 7.36 pH Units (7.32-7.45); ABG PO2 54 mmHg (85-104); ABG TCO2 32 mEq/L (20-26); Blood Gas Modality AF; Blood Gas VT 520 cc
[2019-04-23] MEDS: *HR* Heparin 5,000 UNIT/ML VIAL SQ SCH ×2 (05:11→17:39)
[2019-04-23 08:47] LABS: ABG Base Excess 4 mEq/L (-2 to 3); ABG HCO3 30 mEq/L (21-27); ABG Oxygen Saturation 87 % (95-98); ABG PCO2 57 mmHg (35-45); ABG PH 7.34 pH Units (7.32-7.45); ABG PO2 58 mmHg (85-104); ABG TCO2 32 mEq/L (20-26); Blood Gas Modality ASSIST CONTROL; Blood Gas VT 450 cc
[2019-04-23] MEDS: Chlorhexidine Rinse 15 ML MOUTHWASH MM SCH ×2 (08:58→19:57)
[2019-04-23] MEDS: Pantoprazole 40 MG VIAL IVP SCH (10:55)
[2019-04-23] MEDS: Sodium Ferric Gluconat/Sucrose 125 MG in 0.9 % Sodium Chloride 100 ML IVPB SCH (10:55)
[2019-04-23] MEDS: OMEGA PO SCH (11:52)
[2019-04-23] MEDS: Aspirin 81 MG TAB.CHEW PO SCH (11:52)
[2019-04-23] MEDS: Multivit/Ca/Min/Fe/FA 1 TAB TABLET PO SCH (11:52)
[2019-04-23] MEDS: Isosorbide MONOnitrate (24 HR) 30 MG TAB.ER.24H PO SCH (11:52)
[2019-04-23] MEDS: Vitamin E 200 UNIT (90MG) CAPSULE PO SCH (11:53)
[2019-04-23] MEDS ORDERED: Furosemide 20 MG/2 ML VIAL IVP ONE (12:33)
[2019-04-24] MEDS: Artificial Tears SOLN 15 ML BOTTLE BOTH EYES SCH ×5 (03:00→23:37)
[2019-04-24] MEDS: FentaNYL (PF) 1,000 MCG in 0.9 % Sodium Chloride 80 ML IVC SCH ×2 (03:00→22:02)
[2019-04-24 03:25] LABS: Basophils % 0.1 %; Hematocrit 24.5 % (35.3-44.9); Mean Platelet Volume 9.7 fL (9.4-12.4); Segmented Neutrophils % 88.8 %
[2019-04-24 03:26] LABS: Immature Granulocytes % 4.5 % (0-4); Lymphocytes # 1.1 K/mcL (0.6-4.6); Lymphocytes % 3.5 %; Mean Corpuscular HGB Conc 32.7 g/dL (31.6-35.5); Mean Corpuscular Hemoglobin 31.7 pg (28.0-33.3); Mean Corpuscular Volume 97.2 fL (83.0-100.0); Monocytes # 0.9 K/mcL (0.0-1.3); Monocytes % 3.1 %; Platelet Count 248 K/mcL (140-400); Red Blood Count 2.52 M/mcL (3.82-4.97); Red Cell Distribution Width 14.2 % (11.5-14.5)
[2019-04-24 03:27] LABS: White Blood Count 30.4 K/mcL (4.3-11.1)
[2019-04-24] MEDS: Levalbuterol Neb 1.25 MG/3 ML IH SCH ×4 (03:40→20:03)
[2019-04-24 03:44] LABS: Calcium 8.9 mg/dL (8.6-10.3); Potassium 3.8 mEq/L (3.5-5.1)
[2019-04-24 04:11] LABS: Platelet Estimate Normal (Normal)
[2019-04-24 04:58] LABS: ABG Base Excess 6 mEq/L (-2 to 3); ABG HCO3 32 mEq/L (21-27); ABG Oxygen Saturation 79 % (95-98); ABG PCO2 56 mmHg (35-45); ABG PH 7.37 pH Units (7.32-7.45); ABG PO2 46 mmHg (85-104); ABG TCO2 34 mEq/L (20-26); Blood Gas Modality AF; Blood Gas VT 450 cc
[2019-04-24] MEDS: methylPREDNISolone 125 MG/2 ML VIAL IVP SCH ×3 (06:04→23:36)
[2019-04-24] MEDS: *HR* Heparin 5,000 UNIT/ML VIAL SQ SCH ×2 (06:04→19:30)
[2019-04-24] MEDS: Chlorhexidine Rinse 15 ML MOUTHWASH MM SCH ×2 (07:24→20:52)
[2019-04-24] MEDS: Pantoprazole 40 MG VIAL IVP SCH (07:24)
[2019-04-24] MEDS ORDERED: Furosemide 20 MG/2 ML VIAL IVP ONE (10:24)
[2019-04-24] MEDS ORDERED: *HR* Midazolam HCl 2 MG/2 ML VIAL ONE ×2 (11:21→16:43)
[2019-04-24 18:00] LABS: ABG Base Excess 4 mEq/L (-2 to 3); ABG HCO3 31 mEq/L (21-27); ABG Oxygen Saturation 96 % (95-98); ABG PCO2 62 mmHg (35-45); ABG PH 7.31 pH Units (7.32-7.45); ABG PO2 92 mmHg (85-104); ABG TCO2 33 mEq/L (20-26); Blood Gas VT 450 cc
[2019-04-24] MEDS ORDERED: Insulin LISPRO 300 UNITS/3 ML VIAL SQ ONE (19:16)
[2019-04-24] MEDS: Isosorbide MONOnitrate (24 HR) 30 MG TAB.ER.24H PO SCH (19:26)
[2019-04-24] MEDS: Aspirin 81 MG TAB.CHEW PO SCH (19:26)
[2019-04-24] MEDS: Vitamin E 200 UNIT (90MG) CAPSULE PO SCH (19:27)
[2019-04-24] MEDS: Multivit/Ca/Min/Fe/FA 1 TAB TABLET PO SCH (19:27)
[2019-04-24] MEDS ORDERED: Dextrose Gel 15 GM/37.5 ML TUBE PO PRN ×2 (20:14)
[2019-04-24] MEDS ORDERED: D5% in Water 1,000 ML IVC PRN (20:14)
[2019-04-24] MEDS ORDERED: *HR* Dextrose 50 % in Water (Syg) 50 ML SYRINGE IVP PRN (20:14)
[2019-04-24] MEDS ORDERED: *HR* Midazolam HCl 2 MG/2 ML VIAL IVP PRN (21:25)
[2019-04-24 22:09] LABS: Calcium 9.1 mg/dL (8.6-10.3); Magnesium 2.8 mg/dL (1.6-2.6); Potassium 3.9 mEq/L (3.5-5.1)
[2019-04-24] MEDS: Insulin LISPRO 300 UNITS/3 ML VIAL SQ SCH (23:42)
[2019-04-25] MEDS: Levalbuterol Neb 1.25 MG/3 ML IH SCH ×7 (00:19→23:34)
[2019-04-25 04:33] LABS: Hematocrit 25.3 % (35.3-44.9); Hemoglobin 8.1 g/dL (11.5-15.4); Mean Corpuscular Hemoglobin 31.3 pg (28.0-33.3); Mean Corpuscular Volume 97.7 fL (83.0-100.0); Mean Platelet Volume 10.2 fL (9.4-12.4); Nucleated Red Blood Cells 0.3 /100 WBC (0); Platelet Count 323 K/mcL (140-400); Red Blood Count 2.59 M/mcL (3.82-4.97); Red Cell Distribution Width 14.9 % (11.5-14.5)
[2019-04-25 04:49] LABS: Calcium 8.9 mg/dL (8.6-10.3); Potassium 4.1 mEq/L (3.5-5.1)
[2019-04-25] MEDS: Artificial Tears SOLN 15 ML BOTTLE BOTH EYES SCH ×6 (04:51→23:17)
[2019-04-25 05:10] LABS: White Blood Count 37.4 K/mcL (4.3-11.1)
[2019-04-25 05:25] LABS: ABG Base Excess 2 mEq/L (-2 to 3); ABG HCO3 30 mEq/L (21-27); ABG Oxygen Saturation 94 % (95-98); ABG PCO2 64 mmHg (35-45); ABG PH 7.28 pH Units (7.32-7.45); ABG PO2 83 mmHg (85-104); ABG TCO2 32 mEq/L (20-26); Blood Gas Modality AF; Blood Gas VT 450 cc
[2019-04-25] MEDS: FentaNYL (PF) 1,000 MCG in 0.9 % Sodium Chloride 80 ML IVC SCH ×2 (05:37→15:44)
[2019-04-25] MEDS: Insulin LISPRO 300 UNITS/3 ML VIAL SQ SCH ×4 (05:38→23:44)
[2019-04-25] MEDS: *HR* Heparin 5,000 UNIT/ML VIAL SQ SCH ×2 (05:38→17:55)
[2019-04-25] MEDS: methylPREDNISolone 125 MG/2 ML VIAL IVP SCH (05:38)
[2019-04-25 05:47] LABS: Neutrophils # 34.4 K/mcL (1.6-8.9); Platelet Estimate Normal (Normal)
[2019-04-25] MEDS: Pantoprazole 40 MG VIAL IVP SCH (07:40)
[2019-04-25] MEDS: Chlorhexidine Rinse 15 ML MOUTHWASH MM SCH ×2 (07:40→20:47)
[2019-04-25] MEDS: Vitamin E 200 UNIT (90MG) CAPSULE PO SCH (10:09)
[2019-04-25] MEDS: Multivit/Ca/Min/Fe/FA 1 TAB TABLET PO SCH (10:09)
[2019-04-25] MEDS: Aspirin 81 MG TAB.CHEW PO SCH (10:09)
[2019-04-25] MEDS: Isosorbide MONOnitrate (24 HR) 30 MG TAB.ER.24H PO SCH (10:09)
[2019-04-25 16:23] LABS: Bilirubin,Urine Negative (Negative); Blood,Urine Small (Negative); Clarity,Urine Cloudy (Clear); Color,Urine Yellow (Yellow); Glucose,Urine (UA) Normal (Normal); Ketones,Urine Negative (Negative); Leukocyte Esterase,Urine Negative (Negative); Nitrite,Urine Negative (Negative); PH,Urine 5.5 pH Units (5.0-8.0); Protein,Urine 30 mg/dL (Neg-Trace); Specific Gravity,Urine 1.018 (1.010-1.025); Urobilinogen,Urine Normal (Normal)
[2019-04-25 16:25] LABS: Bacteria,Urine None Seen per hpf (None-Few); Squamous Epithelial Cell,Urine Many per lpf (None-Few)
[2019-04-25 16:32] LABS: Sodium, Urine 11.1 mEq/L
[2019-04-25 16:34] LABS: Hyaline Casts,Urine Moderate per lpf (None-Few)
[2019-04-26] MEDS: FentaNYL (PF) 1,000 MCG in 0.9 % Sodium Chloride 80 ML IVC SCH ×3 (01:10→19:53)
[2019-04-26] MEDS: Artificial Tears SOLN 15 ML BOTTLE BOTH EYES SCH ×6 (03:06→23:21)
[2019-04-26] MEDS: Levalbuterol Neb 1.25 MG/3 ML IH SCH ×5 (03:43→20:01)
[2019-04-26 05:04] LABS: Folate 18.9 ng/mL (3.0-16.0)
[2019-04-26 05:07] LABS: Vitamin B12 > 1500 pg/mL (250-1100)
[2019-04-26 05:10] LABS: ABG Base Excess 3 mEq/L (-2 to 3); ABG HCO3 29 mEq/L (21-27); ABG Oxygen Saturation 90 % (95-98); ABG PCO2 54 mmHg (35-45); ABG PH 7.34 pH Units (7.32-7.45); ABG PO2 62 mmHg (85-104); ABG TCO2 31 mEq/L (20-26); Blood Gas Modality AF; Blood Gas VT 450 cc
[2019-04-26] MEDS: Insulin LISPRO 300 UNITS/3 ML VIAL SQ SCH ×3 (05:38→17:35)
[2019-04-26] MEDS: *HR* Heparin 5,000 UNIT/ML VIAL SQ SCH ×2 (05:54→18:10)
[2019-04-26 07:59] LABS: Hematocrit 24.7 % (35.3-44.9); Nucleated Red Blood Cells 0.3 /100 WBC (0)
[2019-04-26 08:00] LABS: Hemoglobin 7.8 g/dL (11.5-15.4); Mean Corpuscular HGB Conc 31.6 g/dL (31.6-35.5); Mean Corpuscular Hemoglobin 31.1 pg (28.0-33.3); Mean Corpuscular Volume 98.4 fL (83.0-100.0); Platelet Count 300 K/mcL (140-400); Red Blood Count 2.51 M/mcL (3.82-4.97); Red Cell Distribution Width 14.8 % (11.5-14.5)
[2019-04-26 08:05] LABS: White Blood Count 37.1 K/mcL (4.3-11.1)
[2019-04-26 08:18] LABS: Albumin 2.8 g/dL (3.5-5.7); Albumin/Globulin Ratio 0.9 (1.1-2.2); Bilirubin,Total 0.5 mg/dL (0.3-1.0); Calcium 8.8 mg/dL (8.6-10.3); Globulin 3.1 g/dL (2.4-3.5); Magnesium 3.2 mg/dL (1.6-2.6); Phosphorous 5.5 mg/dL (2.7-4.5); Potassium 3.9 mEq/L (3.5-5.1); Total Protein 5.9 g/dL (6.4-8.9)
[2019-04-26] MEDS: Chlorhexidine Rinse 15 ML MOUTHWASH MM SCH ×2 (08:29→20:27)
[2019-04-26] MEDS: Aspirin 81 MG TAB.CHEW PO SCH (08:29)
[2019-04-26] MEDS: Isosorbide MONOnitrate (24 HR) 30 MG TAB.ER.24H PO SCH (08:30)
[2019-04-26] MEDS: Multivit/Ca/Min/Fe/FA 1 TAB TABLET PO SCH (08:31)
[2019-04-26 08:32] LABS: Lymphocytes # 4.1 K/mcL (0.6-4.6); Monocytes # 1.1 K/mcL (0.0-1.3); Neutrophils # 31.5 K/mcL (1.6-8.9)
[2019-04-26] MEDS: Vitamin E 200 UNIT (90MG) CAPSULE PO SCH (08:32)
[2019-04-26 08:33] LABS: Platelet Estimate Normal (Normal)
[2019-04-26 08:34] LABS: Polychromasia 1+ (Not Present); Toxic Granulation Present (Not Present)
[2019-04-26] MEDS: Pantoprazole 40 MG VIAL IVP SCH (09:36)
[2019-04-26] MEDS: Sodium Ferric Gluconat/Sucrose 125 MG in 0.9 % Sodium Chloride 100 ML IVPB SCH (09:39)
[2019-04-26] MEDS ORDERED: *HR* Rocuronium Bromide 100 MG/10 ML VIAL IVC ONE (10:06)
[2019-04-26] MEDS ORDERED: *HR* Rocuronium Bromide 50 MG/5 ML VIAL IVP ONE (13:33)
[2019-04-26] MEDS ORDERED: Cefepime HCl 2,000 MG in 0.9 % Sodium Chloride Mini Bag 100 ML IVPB SCH (13:40)
[2019-04-26] MEDS ORDERED: Lidocaine -MPF 1% 5 ML AMPUL INFILT ONE (14:58)
[2019-04-26] MEDS: Cefepime HCl 2,000 MG in Water for inj. (sterile) 20 ML IVP SCH (15:08)
[2019-04-26] MEDS: Norepinephrine 4 MG in 0.9 % Sodium Chloride 250 ML IVC SCH (16:16)
[2019-04-26] MEDS: Ipratropium Neb 0.5 MG NEBULIZER IH SCH ×2 (17:03→20:02)
[2019-04-26] MEDS: Doxycycline 100 MG in 0.9 % Sodium Chloride Mini Bag 100 ML IVPB SCH (17:33)
[2019-04-26 17:58] LABS: Complement C3 142 mg/dL (87-200)
[2019-04-26] MEDS: methylPREDNISolone 125 MG/2 ML VIAL IVP SCH ×2 (18:11→23:21)
[2019-04-26] MEDS: Cisatracurium 200 MG in 0.9 % Sodium Chloride 180 ML IVC SCH (18:30)
[2019-04-27] MEDS: Insulin LISPRO 300 UNITS/3 ML VIAL SQ SCH ×5 (00:09→23:57)
[2019-04-27] MEDS: Levalbuterol Neb 1.25 MG/3 ML IH SCH ×7 (00:13→23:57)
[2019-04-27] MEDS: Ipratropium Neb 0.5 MG NEBULIZER IH SCH ×7 (00:13→23:57)
[2019-04-27] MEDS: Artificial Tears SOLN 15 ML BOTTLE BOTH EYES SCH ×6 (03:09→23:57)
[2019-04-27] MEDS: FentaNYL (PF) 1,000 MCG in 0.9 % Sodium Chloride 80 ML IVC SCH ×4 (03:55→23:15)
[2019-04-27 04:49] LABS: Hematocrit 21.8 % (35.3-44.9); Mean Corpuscular HGB Conc 32.1 g/dL (31.6-35.5); Mean Corpuscular Hemoglobin 31.3 pg (28.0-33.3); Mean Corpuscular Volume 97.3 fL (83.0-100.0); Mean Platelet Volume 10.4 fL (9.4-12.4); Nucleated Red Blood Cells 0.5 /100 WBC (0); Platelet Count 284 K/mcL (140-400); Red Blood Count 2.24 M/mcL (3.82-4.97); Red Cell Distribution Width 15.5 % (11.5-14.5); White Blood Count 29.2 K/mcL (4.3-11.1)
[2019-04-27 04:54] LABS: Calcium 8.6 mg/dL (8.6-10.3); Potassium 4.5 mEq/L (3.5-5.1)
[2019-04-27 04:58] LABS: Magnesium 3.1 mg/dL (1.6-2.6); Phosphorous 5.8 mg/dL (2.7-4.5)
[2019-04-27] MEDS: *HR* Heparin 5,000 UNIT/ML VIAL SQ SCH ×2 (05:04→17:58)
[2019-04-27] MEDS: methylPREDNISolone 125 MG/2 ML VIAL IVP SCH ×4 (05:04→23:53)
[2019-04-27] MEDS: Doxycycline 100 MG in 0.9 % Sodium Chloride Mini Bag 100 ML IVPB SCH ×2 (05:04→17:56)
[2019-04-27 05:29] LABS: Lymphocytes # 1.8 K/mcL (0.6-4.6); Monocytes # 2.3 K/mcL (0.0-1.3); Neutrophils # 25.1 K/mcL (1.6-8.9); Platelet Estimate Normal (Normal)
[2019-04-27 05:32] LABS: ABG Base Excess 3 mEq/L (-2 to 3); ABG HCO3 28 mEq/L (21-27); ABG Oxygen Saturation 96 % (95-98); ABG PCO2 47 mmHg (35-45); ABG PH 7.38 pH Units (7.32-7.45); ABG PO2 84 mmHg (85-104); ABG TCO2 29 mEq/L (20-26); Blood Gas Modality ASSIST CONTROL; Blood Gas VT 400 cc
[2019-04-27] MEDS: Aspirin 81 MG TAB.CHEW PO SCH (07:35)
[2019-04-27] MEDS: Isosorbide MONOnitrate (24 HR) 30 MG TAB.ER.24H PO SCH (07:36)
[2019-04-27] MEDS: Vitamin E 200 UNIT (90MG) CAPSULE PO SCH (07:36)
[2019-04-27] MEDS: Multivit/Ca/Min/Fe/FA 1 TAB TABLET PO SCH (07:36)
[2019-04-27] MEDS: Chlorhexidine Rinse 15 ML MOUTHWASH MM SCH ×2 (07:42→19:59)
[2019-04-27] MEDS: Pantoprazole 40 MG VIAL IVP SCH (07:42)
[2019-04-27] MEDS: Norepinephrine 4 MG in 0.9 % Sodium Chloride 250 ML IVC SCH (11:34)
[2019-04-27] MEDS ORDERED: D10% in Water 500 ML IVC PRN ×2 (12:05→12:37)
[2019-04-27] MEDS ORDERED: Acetaminophen 650 MG RECTAL SUPP RC PRN (12:09)
[2019-04-27] MEDS ORDERED: *HR* Metoprolol 5 MG/5 ML VIAL IVP PRN (14:01)
[2019-04-27 14:37] LABS: ABG Base Excess -2 mEq/L (-2 to 3); ABG HCO3 29 mEq/L (21-27); ABG Oxygen Saturation 88 % (95-98); ABG PCO2 92 mmHg (35-45); ABG PO2 76 mmHg (85-104); ABG TCO2 31 mEq/L (20-26); Blood Gas Modality AF; Blood Gas VT 320 cc
[2019-04-27] MEDS: Cefepime HCl 2,000 MG in Water for inj. (sterile) 20 ML IVP SCH (15:34)
[2019-04-27] MEDS ORDERED: Sodium Bicarbonate 50 MEQ/50 ML VIAL ONE (16:25)
[2019-04-27] MEDS: Sodium Bicarbonate 50 MEQ/50 ML VIAL IVP ONE ×2 (16:26→16:39)
[2019-04-27 16:36] LABS: ABG Base Excess -1 mEq/L (-2 to 3); ABG HCO3 28 mEq/L (21-27); ABG Oxygen Saturation 87 % (95-98); ABG PCO2 72 mmHg (35-45); ABG PO2 67 mmHg (85-104); ABG TCO2 30 mEq/L (20-26); Blood Gas Modality AF; Blood Gas VT 380 cc
[2019-04-27] MEDS ORDERED: Furosemide 40 MG/4 ML VIAL IVP ONE (16:50)
[2019-04-27] MEDS ORDERED: Clinimix 5%-20% SOLUTION 2,000 ML with MVI, adult with vitamin K 10 ML, Sodium Acetat... IVC SCH (17:00)
[2019-04-27] MEDS ORDERED: Clinimix E 5%-15% SOLUTION 2,000 ML, Parenteral Amino Acid 10% 0 ML with MVI, adult wi... IVC SCH (17:00)
[2019-04-27] MEDS ORDERED: Clinimix E 5%-20% SOLUTION 2,000 ML, Parenteral Amino Acid 10% 0 ML with MVI, adult wi... IVC SCH (17:00)
[2019-04-27 17:22] LABS: Hematocrit 25.9 % (35.3-44.9)
[2019-04-27] MEDS ORDERED: Amiodarone Premix 360 MG/200 ML BAG IVC SCH (17:30)
[2019-04-27] MEDS ORDERED: Phenylephrine 10 MG in 0.9 % Sodium Chloride 250 ML IVC SCH (17:30)
[2019-04-27] MEDS ORDERED: Amiodarone Premix 360 MG/200 ML BAG IVC ONE (17:45)
[2019-04-27] MEDS: Cisatracurium 200 MG in 0.9 % Sodium Chloride 180 ML IVC SCH (17:55)
[2019-04-27 18:31] LABS: Albumin 3.3 g/dL (3.5-5.7); Albumin/Globulin Ratio 1.1 (1.1-2.2); Bilirubin,Total 0.6 mg/dL (0.3-1.0); Globulin 2.9 g/dL (2.4-3.5); Magnesium 3.2 mg/dL (1.6-2.6); Phosphorous 7.4 mg/dL (2.7-4.5); Potassium 5.1 mEq/L (3.5-5.1); Total Protein 6.2 g/dL (6.4-8.9)
[2019-04-27] MEDS: Phenylephrine 75 MG in 0.9 % Sodium Chloride 250 ML IVC SCH (19:59)
[2019-04-27 20:55] LABS: ABG Base Excess 1 mEq/L (-2 to 3); ABG HCO3 29 mEq/L (21-27); ABG Oxygen Saturation 88 % (95-98); ABG PCO2 66 mmHg (35-45); ABG PH 7.25 pH Units (7.32-7.45); ABG PO2 64 mmHg (85-104); ABG TCO2 31 mEq/L (20-26); Blood Gas Modality ASSIST CONTROL; Blood Gas VT 380 cc
[2019-04-28] MEDS: Amiodarone Premix 360 MG/200 ML BAG IVC SCH ×2 (01:25→13:44)
[2019-04-28] MEDS: Levalbuterol Neb 1.25 MG/3 ML IH SCH ×6 (03:36→23:22)
[2019-04-28] MEDS: Ipratropium Neb 0.5 MG NEBULIZER IH SCH ×6 (03:36→23:22)
[2019-04-28] MEDS: Artificial Tears SOLN 15 ML BOTTLE BOTH EYES SCH ×5 (05:01→20:19)
[2019-04-28 05:15] LABS: ABG Base Excess 2 mEq/L (-2 to 3); ABG HCO3 30 mEq/L (21-27); ABG Oxygen Saturation 92 % (95-98); ABG PCO2 70 mmHg (35-45); ABG PH 7.24 pH Units (7.32-7.45); ABG PO2 79 mmHg (85-104); ABG TCO2 32 mEq/L (20-26); Blood Gas Modality ASSIST CONTROL; Blood Gas VT 380 cc
[2019-04-28 05:24] LABS: Hematocrit 25.5 % (35.3-44.9); Mean Platelet Volume 10.8 fL (9.4-12.4); Red Cell Distribution Width 15.9 % (11.5-14.5)
[2019-04-28 05:25] LABS: Mean Corpuscular HGB Conc 31.4 g/dL (31.6-35.5); Mean Corpuscular Hemoglobin 31.1 pg (28.0-33.3); Mean Corpuscular Volume 99.2 fL (83.0-100.0); Nucleated Red Blood Cells 1.6 /100 WBC (0); Platelet Count 342 K/mcL (140-400); Red Blood Count 2.57 M/mcL (3.82-4.97)
[2019-04-28 05:32] LABS: Phosphorous 4.8 mg/dL (2.7-4.5)
[2019-04-28 05:35] LABS: Potassium 4.8 mEq/L (3.5-5.1)
[2019-04-28 05:39] LABS: White Blood Count 43.2 K/mcL (4.3-11.1)
[2019-04-28] MEDS: FentaNYL (PF) 1,000 MCG in 0.9 % Sodium Chloride 80 ML IVC SCH ×3 (05:50→20:20)
[2019-04-28] MEDS: Doxycycline 100 MG in 0.9 % Sodium Chloride Mini Bag 100 ML IVPB SCH ×2 (06:02→18:07)
[2019-04-28] MEDS: methylPREDNISolone 125 MG/2 ML VIAL IVP SCH ×3 (06:03→18:07)
[2019-04-28] MEDS: Insulin LISPRO 300 UNITS/3 ML VIAL SQ SCH ×3 (06:03→18:26)
[2019-04-28] MEDS: *HR* Heparin 5,000 UNIT/ML VIAL SQ SCH ×2 (06:04→18:26)
[2019-04-28 06:13] LABS: Lymphocytes # 2.6 K/mcL (0.6-4.6); Neutrophils # 40.6 K/mcL (1.6-8.9)
[2019-04-28 06:14] LABS: Hypochromasia Present (Not Present); Platelet Estimate Normal (Normal); Smudge Cells Present (Not Present)
[2019-04-28] MEDS: Chlorhexidine Rinse 15 ML MOUTHWASH MM SCH ×2 (08:26→20:14)
[2019-04-28] MEDS: Pantoprazole 40 MG VIAL IVP SCH (08:26)
[2019-04-28] MEDS: Sodium Ferric Gluconat/Sucrose 125 MG in 0.9 % Sodium Chloride 100 ML IVPB SCH (08:27)
[2019-04-28] MEDS: Phenylephrine 75 MG in 0.9 % Sodium Chloride 250 ML IVC SCH ×2 (09:40→20:20)
[2019-04-28] MEDS ORDERED: D5% in Water 500 ML IVC SCH (10:00)
[2019-04-28] MEDS: Vasopressin 40 UNIT in D5% in Water 100 ML IVC SCH (13:45)
[2019-04-28] MEDS: Cefepime HCl 2,000 MG in Water for inj. (sterile) 20 ML IVP SCH (15:33)
[2019-04-28] MEDS ORDERED: Clinimix 5%-20% SOLUTION 2,000 ML with MVI, adult with vitamin K 10 ML, Sodium Acetat... IVC SCH (17:00)
[2019-04-28] MEDS ORDERED: Vancomycin 1 EACH in 0.9 % Sodium Chloride 250 ML IVPB SCH (18:00)
[2019-04-28 21:47] LABS: Alpha 2 Globulin (PEP) 1.13 g/dL (0.48-1.05); Beta Globulin (PEP) 0.74 g/dL (0.48-1.10)
[2019-04-28] MEDS: Cisatracurium 200 MG in 0.9 % Sodium Chloride 180 ML IVC SCH (22:25)
[2019-04-29] MEDS: Amiodarone Premix 360 MG/200 ML BAG IVC SCH ×3 (00:53→23:26)
[2019-04-29] MEDS: Artificial Tears SOLN 15 ML BOTTLE BOTH EYES SCH ×6 (00:54→19:46)
[2019-04-29] MEDS: Insulin LISPRO 300 UNITS/3 ML VIAL SQ SCH ×4 (00:54→15:15)
[2019-04-29] MEDS: methylPREDNISolone 125 MG/2 ML VIAL IVP SCH ×4 (00:55→17:23)
[2019-04-29] MEDS: Levalbuterol Neb 1.25 MG/3 ML IH SCH ×6 (03:23→23:36)
[2019-04-29] MEDS: Ipratropium Neb 0.5 MG NEBULIZER IH SCH ×6 (03:23→23:36)
[2019-04-29 04:24] LABS: ABG Base Excess 2 mEq/L (-2 to 3); ABG HCO3 30 mEq/L (21-27); ABG Oxygen Saturation 91 % (95-98); ABG PCO2 69 mmHg (35-45); ABG PH 7.25 pH Units (7.32-7.45); ABG PO2 74 mmHg (85-104); ABG TCO2 32 mEq/L (20-26); Blood Gas Modality ASSIST CONTROL; Blood Gas VT 400 cc
[2019-04-29] MEDS: FentaNYL (PF) 1,000 MCG in 0.9 % Sodium Chloride 80 ML IVC SCH ×3 (04:31→17:44)
[2019-04-29 05:04] LABS: Nucleated Red Blood Cells 0.7 /100 WBC (0)
[2019-04-29 05:06] LABS: Hematocrit 25.1 % (35.3-44.9); Hemoglobin 7.8 g/dL (11.5-15.4); Mean Corpuscular HGB Conc 31.1 g/dL (31.6-35.5); Mean Corpuscular Hemoglobin 31.8 pg (28.0-33.3); Mean Corpuscular Volume 102.4 fL (83.0-100.0); Platelet Count 284 K/mcL (140-400); Red Blood Count 2.45 M/mcL (3.82-4.97); Red Cell Distribution Width 16.6 % (11.5-14.5)
[2019-04-29 05:08] LABS: White Blood Count 42.3 K/mcL (4.3-11.1)
[2019-04-29 05:19] LABS: Calcium 8.6 mg/dL (8.6-10.3); Potassium 4.9 mEq/L (3.5-5.1)
[2019-04-29 05:20] LABS: Magnesium 2.6 mg/dL (1.6-2.6); Phosphorous 3.3 mg/dL (2.7-4.5)
[2019-04-29 06:00] LABS: Lymphocytes # 2.5 K/mcL (0.6-4.6); Monocytes # 1.7 K/mcL (0.0-1.3); Neutrophils # 36.4 K/mcL (1.6-8.9)
[2019-04-29 06:01] LABS: Anisocytosis 1+ (Not Present); Platelet Estimate Normal (Normal)
[2019-04-29] MEDS: Doxycycline 100 MG in 0.9 % Sodium Chloride Mini Bag 100 ML IVPB SCH ×2 (06:07→17:22)
[2019-04-29] MEDS: *HR* Heparin 5,000 UNIT/ML VIAL SQ SCH ×2 (06:08→17:25)
[2019-04-29] MEDS: Chlorhexidine Rinse 15 ML MOUTHWASH MM SCH ×2 (08:25→19:46)
[2019-04-29] MEDS: Pantoprazole 40 MG VIAL IVP SCH (08:25)
[2019-04-29] MEDS: Vasopressin 40 UNIT in D5% in Water 100 ML IVC SCH (08:56)
[2019-04-29 09:36] LABS: IFE Reflexed IFE Done
[2019-04-29 09:37] LABS: Immunoglobulin A 163 mg/dL (68-408); Immunoglobulin G 735 mg/dL (768-1632); Immunoglobulin M 34 mg/dL (35-263)
[2019-04-29 09:57] LABS: ANA IgG by ELISA DETECTED (None Detected)
[2019-04-29] MEDS: Cisatracurium 200 MG in 0.9 % Sodium Chloride 180 ML IVC SCH (11:27)
[2019-04-29] MEDS: Phenylephrine 75 MG in 0.9 % Sodium Chloride 250 ML IVC SCH ×2 (12:30→23:27)
[2019-04-29] MEDS ORDERED: D5% in Water 1,000 ML IVC ONE (14:15)
[2019-04-29] MEDS: Cefepime HCl 2,000 MG in Water for inj. (sterile) 20 ML IVP SCH (15:21)
[2019-04-29] MEDS ORDERED: Clinimix E 5%-15% SOLUTION 2,000 ML with MVI, adult with vitamin K 10 ML IVC SCH (17:00)
[2019-04-29 17:59] LABS: ANA HEp-2 IgG IFA DETECTED (<1:80)
[2019-04-29 18:00] LABS: Anti Nuclear Ab Pattern SPECKLED
[2019-04-30] MEDS: Artificial Tears SOLN 15 ML BOTTLE BOTH EYES SCH ×6 (00:23→20:41)
[2019-04-30] MEDS: methylPREDNISolone 125 MG/2 ML VIAL IVP SCH ×4 (00:23→20:41)
[2019-04-30] MEDS: Insulin LISPRO 300 UNITS/3 ML VIAL SQ SCH ×4 (00:24→18:37)
[2019-04-30] MEDS: Ipratropium Neb 0.5 MG NEBULIZER IH SCH ×5 (03:17→19:49)
[2019-04-30] MEDS: Levalbuterol Neb 1.25 MG/3 ML IH SCH ×5 (03:17→19:49)
[2019-04-30 04:29] LABS: Nucleated Red Blood Cells 0.7 /100 WBC (0); Red Cell Distribution Width 17.3 % (11.5-14.5)
[2019-04-30 04:30] LABS: Hematocrit 24.9 % (35.3-44.9); Hemoglobin 7.3 g/dL (11.5-15.4); Mean Corpuscular HGB Conc 29.3 g/dL (31.6-35.5); Mean Corpuscular Hemoglobin 31.3 pg (28.0-33.3); Mean Corpuscular Volume 106.9 fL (83.0-100.0); Mean Platelet Volume 11.4 fL (9.4-12.4); Platelet Count 244 K/mcL (140-400); Red Blood Count 2.33 M/mcL (3.82-4.97)
[2019-04-30 04:41] LABS: White Blood Count 39.4 K/mcL (4.3-11.1)
[2019-04-30 04:45] LABS: Calcium 8.4 mg/dL (8.6-10.3); Potassium 5.2 mEq/L (3.5-5.1)
[2019-04-30 04:47] LABS: Magnesium 2.3 mg/dL (1.6-2.6); Phosphorous 4.1 mg/dL (2.7-4.5)
[2019-04-30 04:49] LABS: ABG Base Excess 1 mEq/L (-2 to 3); ABG HCO3 25 mEq/L (21-27); ABG Oxygen Saturation 92 % (95-98); ABG PCO2 39 mmHg (35-45); ABG PH 7.42 pH Units (7.32-7.45); ABG PO2 64 mmHg (85-104); ABG TCO2 26 mEq/L (20-26); Blood Gas VT 400 cc
[2019-04-30 05:14] LABS: Lymphocytes # 0.8 K/mcL (0.6-4.6); Monocytes # 0.8 K/mcL (0.0-1.3); Neutrophils # 36.3 K/mcL (1.6-8.9)
[2019-04-30 05:15] LABS: Anisocytosis 1+ (Not Present); Platelet Estimate Normal (Normal)
[2019-04-30] MEDS: *HR* Heparin 5,000 UNIT/ML VIAL SQ SCH ×2 (05:40→17:44)
[2019-04-30] MEDS: Doxycycline 100 MG in 0.9 % Sodium Chloride Mini Bag 100 ML IVPB SCH ×2 (05:40→17:44)
[2019-04-30] MEDS: Chlorhexidine Rinse 15 ML MOUTHWASH MM SCH ×2 (07:55→20:41)
[2019-04-30] MEDS: Pantoprazole 40 MG VIAL IVP SCH (07:55)
[2019-04-30 08:22] LABS: Calcium 8.3 mg/dL (8.6-10.3); Potassium 5.3 mEq/L (3.5-5.1)
[2019-04-30] MEDS ORDERED: Vancomycin 1 EACH in 0.9 % Sodium Chloride 250 ML IVPB PRN (08:45)
[2019-04-30] MEDS: Sodium Ferric Gluconat/Sucrose 125 MG in 0.9 % Sodium Chloride 100 ML IVPB SCH (10:05)
[2019-04-30] MEDS: Phenylephrine 75 MG in 0.9 % Sodium Chloride 250 ML IVC SCH ×2 (10:46→22:56)
[2019-04-30] MEDS: Vasopressin 40 UNIT in D5% in Water 100 ML IVC SCH ×2 (10:48→22:04)
[2019-04-30] MEDS: Amiodarone Premix 360 MG/200 ML BAG IVC SCH (12:21)
[2019-04-30] MEDS: Cefepime HCl 2,000 MG in Water for inj. (sterile) 20 ML IVP SCH (14:44)
[2019-04-30] MEDS ORDERED: Clinimix 5%-20% SOLUTION 2,000 ML with MVI, adult with vitamin K 10 ML, Sodium Chlori... IVC SCH (17:00)
[2019-04-30] MEDS: Cisatracurium 200 MG in 0.9 % Sodium Chloride 180 ML IVC SCH (17:28)
[2019-04-30] MEDS: WATER IVC SCH (19:08)
[2019-04-30] MEDS: D5 IVC SCH (19:08)
[2019-05-01] MEDS: Levalbuterol Neb 1.25 MG/3 ML IH SCH ×7 (00:48→23:38)
[2019-05-01] MEDS: Ipratropium Neb 0.5 MG NEBULIZER IH SCH ×7 (00:48→23:38)
[2019-05-01] MEDS: Amiodarone Premix 360 MG/200 ML BAG IVC SCH ×2 (01:06→14:00)
[2019-05-01] MEDS: Artificial Tears SOLN 15 ML BOTTLE BOTH EYES SCH ×7 (01:07→23:09)
[2019-05-01] MEDS: Insulin LISPRO 300 UNITS/3 ML VIAL SQ SCH ×5 (01:08→23:08)
[2019-05-01] MEDS: methylPREDNISolone 125 MG/2 ML VIAL IVP SCH ×4 (03:09→20:01)
[2019-05-01 06:01] LABS: Magnesium 2.7 mg/dL (1.6-2.6); Phosphorous 5.9 mg/dL (2.7-4.5)
[2019-05-01 06:12] LABS: ABG Base Excess -3 mEq/L (-2 to 3); ABG HCO3 26 mEq/L (21-27); ABG Oxygen Saturation 89 % (95-98); ABG PCO2 66 mmHg (35-45); ABG PO2 71 mmHg (85-104); ABG TCO2 28 mEq/L (20-26); Blood Gas Modality AF; Blood Gas VT 400 cc
[2019-05-01] MEDS: Doxycycline 100 MG in 0.9 % Sodium Chloride Mini Bag 100 ML IVPB SCH ×2 (06:16→17:22)
[2019-05-01] MEDS: *HR* Heparin 5,000 UNIT/ML VIAL SQ SCH ×2 (06:16→17:50)
[2019-05-01 07:41] LABS: Hematocrit 23.4 % (35.3-44.9); Nucleated Red Blood Cells 0.8 /100 WBC (0)
[2019-05-01 07:43] LABS: Hemoglobin 6.7 g/dL (11.5-15.4); Mean Corpuscular HGB Conc 28.6 g/dL (31.6-35.5); Mean Corpuscular Volume 108.3 fL (83.0-100.0); Mean Platelet Volume 11.8 fL (9.4-12.4); Platelet Count 161 K/mcL (140-400); Red Blood Count 2.16 M/mcL (3.82-4.97); Red Cell Distribution Width 17.5 % (11.5-14.5)
[2019-05-01 07:50] LABS: White Blood Count 35.4 K/mcL (4.3-11.1)
[2019-05-01] MEDS ORDERED: Vancomycin 1,500 MG in D5% in Water 250 ML IVPB ONE (08:00)
[2019-05-01 08:11] LABS: Basophilic Stippling 1+ (Not Present); Platelet Estimate Normal (Normal)
[2019-05-01 08:13] LABS: Neutrophils # 32.6 K/mcL (1.6-8.9)
[2019-05-01] MEDS: Pantoprazole 40 MG VIAL IVP SCH (09:02)
[2019-05-01] MEDS: Chlorhexidine Rinse 15 ML MOUTHWASH MM SCH ×2 (09:02→20:01)
[2019-05-01] MEDS: Phenylephrine 75 MG in 0.9 % Sodium Chloride 250 ML IVC SCH ×2 (09:15→23:09)
[2019-05-01 10:54] LABS: Calcium 8.1 mg/dL (8.6-10.3); Chol/HDL Ratio 2.9 (0-4.9); Potassium 4.8 mEq/L (3.5-5.1)
[2019-05-01] MEDS: Cefepime HCl 2,000 MG in Water for inj. (sterile) 20 ML IVP SCH (15:15)
[2019-05-01] MEDS ORDERED: Clinimix 5%-20% SOLUTION 2,000 ML with MVI, adult with vitamin K 10 ML, Sodium Chlori... IVC SCH (17:00)
[2019-05-01] MEDS: Cisatracurium 200 MG in 0.9 % Sodium Chloride 180 ML IVC SCH (17:22)
[2019-05-01] MEDS: D5 IVC SCH (20:02)
[2019-05-01] MEDS: WATER IVC SCH (20:02)
[2019-05-02] MEDS: Amiodarone Premix 360 MG/200 ML BAG IVC SCH (01:32)
[2019-05-02] MEDS: methylPREDNISolone 125 MG/2 ML VIAL IVP SCH ×2 (03:20→08:55)
[2019-05-02] MEDS: Artificial Tears SOLN 15 ML BOTTLE BOTH EYES SCH ×2 (03:21→08:54)
[2019-05-02] MEDS: Ipratropium Neb 0.5 MG NEBULIZER IH SCH ×2 (04:06→07:22)
[2019-05-02] MEDS: Levalbuterol Neb 1.25 MG/3 ML IH SCH ×2 (04:06→07:22)
[2019-05-02 04:07] LABS: Calcium 8.2 mg/dL (8.6-10.3); Magnesium 2.1 mg/dL (1.6-2.6); Phosphorous 5.2 mg/dL (2.7-4.5); Potassium 4.9 mEq/L (3.5-5.1)
[2019-05-02 05:10] LABS: ABG Base Excess -2 mEq/L (-2 to 3); ABG HCO3 27 mEq/L (21-27); ABG Oxygen Saturation 57 % (95-98); ABG PCO2 65 mmHg (35-45); ABG PH 7.22 pH Units (7.32-7.45); ABG PO2 37 mmHg (85-104); ABG TCO2 29 mEq/L (20-26); Blood Gas VT 400 cc
[2019-05-02] MEDS: Insulin LISPRO 300 UNITS/3 ML VIAL SQ SCH (05:20)
[2019-05-02 05:21] LABS: ABG Base Excess -1 mEq/L (-2 to 3); ABG HCO3 24 mEq/L (21-27); ABG Oxygen Saturation 98 % (95-98); ABG PCO2 45 mmHg (35-45); ABG PH 7.35 pH Units (7.32-7.45); ABG PO2 111 mmHg (85-104); ABG TCO2 26 mEq/L (20-26); Blood Gas Modality ASSIST CONTROL; Blood Gas VT 400 cc
[2019-05-02] MEDS: *HR* Heparin 5,000 UNIT/ML VIAL SQ SCH (05:42)
[2019-05-02] MEDS: Doxycycline 100 MG in 0.9 % Sodium Chloride Mini Bag 100 ML IVPB SCH (05:43)
[2019-05-02] MEDS ORDERED: D5% in Water 1,000 ML IVC SCH (07:30)
[2019-05-02 08:08] VITALS: BP 140/34
[2019-05-02] MEDS ORDERED: *HR* LORazepam 2 MG/ML VIAL IVP PRN (08:14)
[2019-05-02] MEDS ORDERED: Scopolamine Patch 1.5 MG PATCH.TD72 TD SCH (08:15)
[2019-05-02] MEDS: Vasopressin 40 UNIT in D5% in Water 100 ML IVC SCH (08:54)
[2019-05-02] MEDS: Chlorhexidine Rinse 15 ML MOUTHWASH MM SCH (08:54)
[2019-05-02] MEDS: Pantoprazole 40 MG VIAL IVP SCH (08:55)
[2019-05-02] MEDS ORDERED: Aminoglycoside Consult 1 EACH MC ONE (10:59)
[2019-05-02] MEDS ORDERED: Clinimix 5%-20% SOLUTION 2,000 ML with MVI, adult with vitamin K 10 ML, Sodium Chlori... IVC SCH (17:00)
== END 2019-05-02 11:00 | disposition expired | DRG 163 ==
LOC: 2NENU 00:58 → EMEROOARM 00:58 → SUATTDRO 04:04 → 2NENU 04:54 → SUATTDRO 04-20 17:03 → ICNU 04-22 15:47
PROVIDERS: ADMIT Internal Medicine; ATTEND Internal Medicine